=== PATIENT | female | born 1965 | race Caucasian/White ===

== ENCOUNTER 2023-04-28 18:55 | Emergency (ER) | payer BC ==
--- OUTSIDE RECORDS SUMMARY | 2023-04-28 19:02 | XMS REPORT | Continuity of Care Document ---
:[address] [facility] t Address [address] [place] [address] [place] [id number] Care Team Providers Name Role Phone Pcp, Patient Does Not Have A Primary Care Physician +1-000-0 00-0000 FOG_A_Provider Attending Clinician Unavailable Francisco Metz Attending Clinician Unavailable Silviano Justin Attending Clinician Unavailable Alejandra Quintana Attending Clinician Unknown, Attending Attending Clinician Unavailable ALEJANDRA MINER Attending Clinician Unavailable Kevin Butler Attending Clinician JIMBO MARTINEZ Attending Clinician Unavailable Therapy, [facility] Attending Clinician Unavailable Jimbo Martinez MD Attending Clinician Doctor Unassigned, [place] Attending Clinician Unavailable FOG_A_Provider Admitting Clinician Unavailable Silviano Justin Admitting Clinician Unavailable KNOW, DOES_NOT Admitting Clinician Unavailable Payers Payer Name Policy Type Policy Number Effective Date Expiration Date [place] [id number] 2021 (PPO) 00:00:00 [facility] [id number] 2020 [facility] 00:00:00 Problems Condition Condition Condition Status Onset Resolution Last Treating Co mments Source Name Details Category Date Date Treatment Clinician Date Myofascial Myofascial Problem Active A zalea pain Pain 5-08 Orthope 00:00: dic 00 Sports Medicin e Right side Right Side Problem Active A zalea sciatica Sciatica 4-24 Orthop e 00:00: dic 00 Sports Medicin e 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 00:00: di c t of right t of Right 00 Sp orts hip joint Hip Joint Medi isai e Hip pain Hip Pain Problem Active Azale a 4-19 Orthope 00:00: dic 00 Sports Medicin e Pain in Pain in Problem Active Annalisa right hip Right Hip 4-19 Orth ope joint Joint 00:00: dic 00 Sports Medicin e Hip pain Hip Pain Problem Active Azale a 2-17 Orthope 00:00: dic 00 Sports Medicin e Rupture of Rupture of Problem Active A zalea hip Hip 2-17 Orthope abductor Abductor 00:00: dic tendon Tendon 00 Sports Medicin e No known No known Disease Unive rs active active ity of problems problems [facility] Headache Headache Problem Active 2021-12-22 Memoria (finding) (finding) 22:30:49 l Active [place] Problem 12/22/2021 [facility] Hypothyroi Hypothyro Problem Active 2021-12-22 Memoria dism idism 22:30:49 l (disorder) (disorder) [place] Active Problem 12/22/2021 [facility] Visual Visual Problem Active 2021-12-22 Ruben luis disturbanc disturbanc 22:30:49 l e e [place] (disorder) (disorder) Active Problem 12/22/2021 [facility] Migraine Migraine Problem Active 2021-12-22 Memoria (disorder) (disorder) 22:30:49 l Active [place] Problem 12/22/2021 [facility] Chest pain Chest Problem Resolve 2021-12-22 Memoria (finding) pain d 22:30:49 l (finding) [place] Resolved Problem 12/22/2021 2016 [facility] Confusiona Confusion Problem Active 2021-12-22 Memoria l state al state 22:30:49 l (disorder) (disorder) [place] Active Problem 12/22/2021 [facility] Dizziness Dizziness Problem Active 2021-12-22 Memoria (finding) (finding) 22:30:49 l Active [place] Problem 12/22/2021 [facility] Allergies, Adverse Reactions, Alerts Allergy Allergy Status Severity Reaction(s) Onset Inactive Treating Comm ents Source Name Type Date Date Clinician No Known DA Active [facility] 03-12 [place] [facility] 00:[facility] 00 [facility] No Known DA Active [facility] Allergie 02-22 [place] 00:00: Rodrigez 00 [facility] No Known DA Active [facility] Allergie 02-21 [place] [facility] 00:[facility]: [facility] 00 dic Hospita l NO KNOWN Drug Active Univers ALLERGIE Class [facility] [place] Social History Social Habit Start Date Stop Date Quantity Comments Source Exposure to 2022-07-27 2022-08-06 Not sure [facility] SARS-CoV-2 (event) 00:00:00 12:58:00 [facility] Social History 2021-10-11 2021-10-11 [facility] 20:22:42 20:22:42 Sex [birth year] [facility] 00:00:00 00:00:00 Medical Branch Smoking Status Start Date Stop Date Source Tobacco smoking consumption [facility] Heavy Tobacco Smoker Annalisa Figueroa [facility] Medications Ordered Filled Start Stop Current Ordering Indication Dosage Frequency Signature Comments Components Source Medication Medication Date Date Medication? Clinician (SIG) Name Name Nebulizer 2021-09 Yes [id number] Use as Un gurvinder Accessories 1-14 directed ity of Kit 00:00: [place] 00 Medical Branch albuterol 2021-09 Yes [id number] 2.5mg Inhale 3 Univers 2.5 mg /3 1-14 mL every 4 ity of mL (0.083 00:00: (four) [place] %) 00 hours as Medical nebulizer needed for Bran ch solution Wheezing or Bronchospa sm. Nebulizer 2021-09 Yes [id number] Use as Un gurvinder Accessories 1-14 directed ity of (ADULT 00:00: [place] AEROSOL 00 Medical MASK) [facility] Branch methylPREDN 2021-09 Yes [id number] [facility] mouth ity of mg tablets 00:00: SEE-INSTRU [place] 00 CTIONS. Medical follow Branch package directions propranoloL 2021-09 Yes Univer s 60 mg 24 hr 0-31 ity of capsule 00:00: [place] [address] Medical Branch estradioL 2 2021-09 Yes Univer s mg tablet 0-30 ity of 00:00: [address] Branch eletriptan Yes 40 mg = 1 Me moria 40 MG Oral 2-15 tab, PO, l Tablet 21:18: Daily, PRN Paty nn [Relpax] 00 for migraine headache, may repeat dose once in 2 hours, X 30 day, # 6 tab, 1 Refill(s), Pharmacy: [facility] [id number], 154.94, cm, 11/07/21 14:52:00 [employer], Height, 65.511, kg, 11/07/21 14:52:00 [employer], Weight eletriptan Yes 40 mg = 1 Me moria 40 MG Oral 2-15 tab, PO, l Tablet 21:18: Daily, PRN Paty nn [Relpax] 00 for migraine headache, may repeat dose once in 2 hours, X 30 day, # 6 tab, 1 Refill(s), Pharmacy: [facility] [id number], 154.94, cm, 11/07/21 14:52:00 [employer], Height, 65.511, kg, 11/07/21 14:52:00 [employer], Weight eletriptan Yes 40 mg = 1 Me moria 40 MG Oral 2-15 tab, PO, l Tablet 21:18: Daily, PRN Paty nn [Relpax] 00 for migraine headache, may repeat dose once in 2 hours, X 30 day, # 6 tab, 1 Refill(s), Pharmacy: [facility] [id number], 154.94, cm, 11/07/21 14:52:00 [employer], Height, 65.511, kg, 11/07/21 14:52:00 [employer], Weight propranolol Yes 10 mg = 1 M emoria 10 mg oral 2-15 tab, PO, l tablet 21:16: BID, # 60 Kurtis n 00 tab, 3 Refill(s), Pharmacy: [facility] [id number], 154.94, cm, 11/07/21 14:52:00 [employer], Height, 65.511, kg, 11/07/21 14:52:00 [employer], Weight propranolol 2021-0 Yes 10 mg = 1 M emoria 10 mg oral 2-15 tab, PO, l tablet 21:16: BID, # 60 Kurtis n 00 tab, 3 Refill(s), Pharmacy: [facility] [id number], 154.94, cm, 11/07/21 14:52:00 [employer], Height, 65.511, kg, 11/07/21 14:52:00 [employer], Weight propranolol 2021-0 Yes 10 mg = 1 M emoria 10 mg oral 2-15 tab, PO, l tablet 21:16: BID, # 60 Kurtis n 00 tab, 3 Refill(s), Pharmacy: [facility] [id number], 154.94, cm, 11/07/21 14:52:00 [employer], Height, 65.511, kg, 11/07/21 14:52:00 [employer], Weight estradiol 2 2021-0 Yes 2 mg = 1 Me moria mg oral 1-19 tab, PO, l tablet 20:28: Daily, # [place] 00 30 tab, 0 Refill(s) pantoprazol 2021-0 Yes 40 mg = 1 M emoria e 40 MG 1-19 tab, PO, l Enteric 20:28: Daily, # Kurtis n Co[place] 00 30 tab, 0 Tablet Refill(s) [Protonix] estradiol 2 2021-0 Yes 2 mg = 1 Me moria mg oral 1-19 tab, PO, l tablet 20:28: Daily, # [place] 00 30 tab, 0 Refill(s) pantoprazol 2-0 Yes 40 mg = 1 M emoria e 40 MG 1-19 tab, PO, l Enteric 20:28: Daily, # Kurtis n Coated 00 30 tab, 0 Tablet Refill(s) [Protonix] estradiol 2 2021-0 Yes 2 mg = 1 Me moria mg oral 1-19 tab, PO, l tablet 20:28: Daily, # [place] 00 30 tab, 0 Refill(s) pantoprazol 2-0 Yes 40 mg = 1 M emoria e 40 MG 1-19 tab, PO, l Enteric 20:28: Daily, # Kurtis n Coated 00 30 tab, 0 Tablet Refill(s) [Protonix] Levothyroxi Yes 175 Memori a ne Sodium 1-19 microgram l 0.175 MG 20:27: = 1 cap, Paty nn Oral 00 PO, Daily, Capsule 0 Refill(s) Levothyroxi Yes 175 Memori a ne Sodium 1-19 microgram l 0.175 MG 20:27: = 1 cap, Paty nn Oral 00 PO, Daily, Capsule 0 Refill(s) Levothyroxi Yes 175 Memori a ne Sodium 1-19 microgram l 0.175 MG 20:27: = 1 cap, Paty nn Oral 00 PO, Daily, Capsule 0 Refill(s) casirivimab 2020- No [id number] 1200mg 1,200 mg, Univers -imdevimab 06-10 Subcutaneo it y of (REGEN-COV 16:45: 15:34 us, ONCE, [place] (EUA)) 00 :00 1 dose, On Medical injection Sat Branch 1,200 mg 06/10/21 at 1145, Routine casirivimab 2020- No [id number] 1200mg 1,200 mg, Univers -imdevimab 06-10 Subcutaneo it y of (REGEN-COV 16:45: 15:34 us, ONCE, [place] (EUA)) 00 :00 1 dose, On Medical injection Sat Branch 1,200 mg 06/10/21 at 1145, Routine levothyroxi 1990-09 Yes levothyrox Univers ne 125 mcg 1-14 ine 125 ity of tablet 00:00: mcg tablet [place] 00 Take 1 Medical tablet Branch every day by oral route for 30 days. albuterol albuterol No albuterol Annalisa sulfate 2.5 sulfate 2.5 sulfate Orthope mg/3 mL mg/3 mL 2.5 mg/3 dic (0.083 %) (0.083 %) mL (0.083 Sports solution solution %) Medicin for for solution e nebulizatio nebulizatio for n n nebulizati on albuterol albuterol No albuterol Annalisa sulfate 2.5 sulfate 2.5 sulfate Orthope mg/3 mL mg/3 mL 2.5 mg/3 dic (0.083 %) (0.083 %) mL (0.083 Sports solution solution %) Medicin for for solution e nebulizatio nebulizatio for n n nebulizati on azithromyci azithromyci No azithromyc Annalisa n 250 mg n 250 mg in 250 mg Or thope tablet tablet tablet dic Sports Medicin e ergocalcife ergocalcife No ergocalcif Annalisa rol rol willem Orthope (vitamin (vitamin (vitamin dic D2) 1,250 D2) 1,250 D2) 1,250 Sports mcg (50,000 mcg (50,000 mcg M edicin unit) unit) (50,000 e capsule capsule unit) capsule estradiol 2 estradiol 2 No estradiol Annalisa mg tablet mg tablet 2 mg Ortho pe tablet dic Sports Medicin e fluconazole fluconazole No fluconazol Annalisa 150 mg 150 mg e 150 mg Orthope tablet tablet tablet dic Sports Medicin e gabapentin gabapentin No gabapentin Annalisa 300 mg 300 mg 300 mg Orthope capsule capsule capsule dic Take 1 Take 1 Take 1 Sports tablet tablet tablet Medicin orally on orally on orally on e day 1 day 1 day 1 (night), 2 (night), 2 (night), 2 tablets tablets tablets (morning & (morning & (morning & night) on night) on night) on day 2, and day 2, and day 2, and 3 tablets 3 tablets 3 tablets (morning, (morning, (morning, afternoon, afternoon, afternoon, night) on night) on night) on day 3. day 3. day 3. Continue 3 Continue 3 Continue 3 times a day times a day times a thereafter thereafter day if no side if no side thereafter effects. effects. if no side effects. levofloxaci levofloxaci No levofloxac Annalisa n 750 mg n 750 mg in 750 mg Or thope tablet tablet tablet dic Sports Medicin e azithromyci azithromyci No azithromyc Annalisa n 250 mg n 250 mg in 250 mg Or thope tablet tablet tablet dic Sports Medicin e levothyroxi levothyroxi No levothyrox Annalisa ne 112 mcg ne 112 mcg ine 112 Orthope tablet tablet mcg tablet dic Sports Medicin e levothyroxi levothyroxi No levothyrox Annalisa ne 125 mcg ne 125 mcg ine 125 Orthope tablet tablet mcg tablet dic Sports Medicin e levothyroxi levothyroxi No levothyrox Annalisa ne 137 mcg ne 137 mcg ine 137 Orthope tablet tablet mcg tablet dic Sports Medicin e levothyroxi levothyroxi No levothyrox Annalisa ne 175 mcg ne 175 mcg ine 175 Orthope tablet tablet mcg tablet dic Sports Medicin e meloxicam meloxicam No meloxicam Annalisa 15 mg 15 mg 15 mg Orthope tablet Take tablet Take tablet dic 1 tablet 1 tablet Take 1 Sport s every day every day tablet Med icin by oral by oral every day e route. route. by oral route. methylpredn methylpredn No methylpred Annalisa isolone 4 isolone 4 nisolone 4 Orthope mg tablets mg tablets mg tablets dic in a dose in a dose in a dose Sports pack pack pack Medicin e pantoprazol pantoprazol No pantoprazo Annalisa e 40 mg e 40 mg le 40 mg Ortho pe tablet,nikki tablet,nikki tablet,del dic yed release yed release ayed S ports release Medicin e prednisolon prednisolon No prednisolo Annalisa e acetate 1 e acetate 1 ne acetate Orthope % eye % eye 1 % eye dic drops,suspe drops,suspe drops,susp Sports nsion nsion ension Medicin e propranolol propranolol No propranolo Annalisa ER 60 mg ER 60 mg l ER 60 mg O rthope capsule,24 capsule,24 capsule,24 dic hr,extended hr,extended hr,extende Sports release release d release Medi isai e ergocalcife ergocalcife No ergocalcif Annalisa rol rol willem Orthope (vitamin (vitamin (vitamin dic D2) 1,250 D2) 1,250 D2) 1,250 Sports mcg (50,000 mcg (50,000 mcg M edicin unit) unit) (50,000 e capsule capsule unit) capsule estradiol 2 estradiol 2 No estradiol Annalisa mg tablet mg tablet 2 mg Ortho pe tablet dic Sports Medicin e albuterol albuterol No albuterol Annalisa sulfate 2.5 sulfate 2.5 sulfate Orthope mg/3 mL mg/3 mL 2.5 mg/3 dic (0.083 %) (0.083 %) mL (0.083 Sports solution solution %) Medicin for for solution e nebulizatio nebulizatio for n n nebulizati on azithromyci azithromyci No azithromyc Annalisa n 250 mg n 250 mg in 250 mg Or thope tablet tablet tablet dic Sports Medicin e ergocalcife ergocalcife No ergocalcif Annalisa rol rol willem Orth[facility] (vitamin (vitamin (vitamin dic D2) 1,250 D2) 1,250 D2) 1,250 Sports mcg (50,000 mcg (50,000 mcg M edicin unit) unit) (50,000 e capsule capsule unit) capsule estradiol 2 estradiol 2 No estradiol Annalisa mg tablet mg tablet 2 mg Ortho pe tablet dic Sports Medicin e fluconazole fluconazole No fluconazol Annalisa 150 mg 150 mg e 150 mg Orthope tablet tablet tablet dic Sports Medicin e gabapentin gabapentin No gabapentin Annalisa 300 mg 300 mg 300 mg Orthope capsule capsule capsule dic Take 1 Take 1 Take 1 Sports tablet tablet tablet Medicin orally on orally on orally on e day 1 day 1 day 1 (night), 2 (night), 2 (night), 2 tablets tablets tablets (morning & (morning & (morning & night) on night) on night) on day 2, and day 2, and day 2, and 3 tablets 3 tablets 3 tablets (morning, (morning, (morning, afternoon, afternoon, afternoon, night) on night) on night) on day 3. day 3. day 3. Continue 3 Continue 3 Continue 3 times a day times a day times a thereafter thereafter day if no side if no side thereafter effects. effects. if no side effects. levofloxaci levofloxaci No levofloxac Annalisa n 750 mg n 750 mg in 750 mg Or thope tablet tablet tablet dic Sports Medicin e levothyroxi levothyroxi No levothyrox Annalisa ne 112 mcg ne 112 mcg ine 112 Orthope tablet tablet mcg tablet dic Sports Medicin e levothyroxi levothyroxi No levothyrox Annalisa ne 125 mcg ne 125 mcg ine 125 Orthope tablet tablet mcg tablet dic Sports Medicin e levothyroxi levothyroxi No levothyrox Annalisa ne 137 mcg ne 137 mcg ine 137 Orthope tablet tablet mcg tablet dic Sports Medicin e fluconazole fluconazole No fluconazol Annalisa 150 mg 150 mg e 150 mg Orthope tablet tablet tablet dic Sports Medicin e levothyroxi levothyroxi No levothyrox Annalisa ne 175 mcg ne 175 mcg ine 175 Orthope tablet tablet mcg tablet dic Sports Medicin e meloxicam meloxicam No meloxicam Annalisa 15 mg 15 mg 15 mg Orthope tablet Take tablet Take tablet dic 1 tablet 1 tablet Take 1 Sport s every day every day tablet Med icin by oral by oral every day e route. route. by oral route. methylpredn methylpredn No methylpred Annalisa isolone 4 isolone 4 nisolone 4 Orthope mg tablets mg tablets mg tablets dic in a dose in a dose in a dose Sports pack pack pack Medicin e pantoprazol pantoprazol No pantoprazo Annalisa e 40 mg e 40 mg le 40 mg Ortho pe tablet,nikki tablet,nikki tablet,del dic yed release yed release ayed S ports release Medicin e prednisolon prednisolon No prednisolo Annalisa e acetate 1 e acetate 1 ne acetate Orthope % eye % eye 1 % eye dic drops,suspe drops,suspe drops,susp Sports nsion nsion ension Medicin e propranolol propranolol No propranolo Annalisa ER 60 mg ER 60 mg l ER 60 mg O rthope capsule,24 capsule,24 capsule,24 dic hr,extended hr,extended hr,extende Sports release release d release Medi isai e levofloxaci levofloxaci No levofloxac Annalisa n 750 mg n 750 mg in 750 mg Or thope tablet tablet tablet dic Sports Medicin e levothyroxi levothyroxi No levothyrox Annalisa ne 112 mcg ne 112 mcg ine 112 Orthope tablet tablet mcg tablet dic Sports Medicin e levothyroxi levothyroxi No levothyrox Annalisa ne 125 mcg ne 125 mcg ine 125 Orthope tablet tablet mcg tablet dic Sports Medicin e levothyroxi levothyroxi No levothyrox Annalisa ne 137 mcg ne 137 mcg ine 137 Orthope tablet tablet mcg tablet dic Sports Medicin e levothyroxi levothyroxi No levothyrox Annalisa ne 175 mcg ne 175 mcg ine 175 Orthope tablet tablet mcg tablet dic Sports Medicin e methylpredn methylpredn No methylpred Annalisa isolone 4 isolone 4 nisolone 4 Orthope mg tablets mg tablets mg tablets dic in a dose in a dose in a dose Sports pack pack pack Medicin e pantoprazol pantoprazol No pantoprazo Annalisa e 40 mg e 40 mg le 40 mg Ortho pe tablet,nikki tablet,nikki tablet,del dic yed release yed release ayed S ports release Medicin e prednisolon prednisolon No prednisolo Annalisa e acetate 1 e acetate 1 ne acetate Orthope % eye % eye 1 % eye dic drops,suspe drops,suspe drops,susp Sports nsion nsion ension Medicin e propranolol propranolol No propranolo Annalisa ER 60 mg ER 60 mg l ER 60 mg O rthope capsule,24 capsule,24 capsule,24 dic hr,extended hr,extended hr,extende Sports release release d release Medi isai e albuterol albuterol No albuterol Annalisa sulfate 2.5 sulfate 2.5 sulfate Orthope mg/3 mL mg/3 mL 2.5 mg/3 dic (0.083 %) (0.083 %) mL (0.083 Sports solution solution %) Medicin for for solution e nebulizatio nebulizatio for n n nebulizati on azithromyci azithromyci No azithromyc Annalisa n 250 mg n 250 mg in 250 mg Or thope tablet tablet tablet dic Sports Medicin e ergocalcife ergocalcife No ergocalcif Annalisa rol rol willem Orthope (vitamin (vitamin (vitamin dic D2) 1,250 D2) 1,250 D2) 1,250 Sports mcg (50,000 mcg (50,000 mcg M edicin unit) unit) (50,000 e capsule capsule unit) capsule estradiol 2 estradiol 2 No estradiol Annalisa mg tablet mg tablet 2 mg Ortho pe tablet dic Sports Medicin e fluconazole fluconazole No fluconazol Annalisa 150 mg 150 mg e 150 mg Orthope tablet tablet tablet dic Sports Medicin e levofloxaci levofloxaci No levofloxac Annalisa n 750 mg n 750 mg in 750 mg Or thope tablet tablet tablet dic Sports Medicin e levothyroxi levothyroxi No levothyrox Annalisa ne 112 mcg ne 112 mcg ine 112 Orthope tablet tablet mcg tablet dic Sports Medicin e levothyroxi levothyroxi No levothyrox Annalisa ne 125 mcg ne 125 mcg ine 125 Orthope tablet tablet mcg tablet dic Sports Medicin e levothyroxi levothyroxi No levothyrox Annalisa ne 137 mcg ne 137 mcg ine 137 Orthope tablet tablet mcg tablet dic Sports Medicin e levothyroxi levothyroxi No levothyrox Annalisa ne 175 mcg ne 175 mcg ine 175 Orthope tablet tablet mcg tablet dic Sports Medicin e meloxicam meloxicam No 1 Q1D meloxicam Annalisa 15 mg 15 mg 15 mg Orthope tablet Take tablet Take tablet dic 1 tablet 1 tablet Take 1 Sport s every day every day tablet Med icin by oral by oral every day e route. route. by oral route. methylpredn methylpredn No methylpred Annalisa isolone 4 isolone 4 nisolone 4 Orthope mg tablets mg tablets mg tablets dic in a dose in a dose in a dose Sports pack pack pack Medicin e pantoprazol pantoprazol No pantoprazo Annalisa e 40 mg e 40 mg le 40 mg Ortho pe tablet,nikki tablet,nikki tablet,del dic yed release yed release ayed S ports release Medicin e prednisolon prednisolon No prednisolo Annalisa e acetate 1 e acetate 1 ne acetate Orthope % eye % eye 1 % eye dic drops,suspe drops,suspe drops,susp Sports nsion nsion ension Medicin e propranolol propranolol No propranolo Annalisa ER 60 mg ER 60 mg l ER 60 mg O rthope capsule,24 capsule,24 capsule,24 dic hr,extended hr,extended hr,extende Sports release release d release Medi isai e albuterol albuterol No albuterol Annalisa sulfate 2.5 sulfate 2.5 sulfate Orthope mg/3 mL mg/3 mL 2.5 mg/3 dic (0.083 %) (0.083 %) mL (0.083 Sports solution solution %) Medicin for for solution e nebulizatio nebulizatio for n n nebulizati on azithromyci azithromyci No azithromyc Annalisa n 250 mg n 250 mg in 250 mg Or thope tablet tablet tablet dic Sports Medicin e ergocalcife ergocalcife No ergocalcif Annalisa rol rol willem [facility] (vitamin (vitamin (vitamin dic D2) 1,250 D2) 1,250 D2) 1,250 Sports mcg (50,000 mcg (50,000 mcg M edicin unit) unit) (50,000 e capsule capsule unit) capsule estradiol 2 estradiol 2 No estradiol Annalisa mg tablet mg tablet 2 mg Ortho pe tablet dic Sports Medicin e fluconazole fluconazole No fluconazol Annalisa 150 mg 150 mg e 150 mg Orthope tablet tablet tablet dic Sports Medicin e levofloxaci levofloxaci No levofloxac Annalisa n 750 mg n 750 mg in 750 mg Or thope tablet tablet tablet dic Sports Medicin e levothyroxi levothyroxi No levothyrox Annalisa ne 112 mcg ne 112 mcg ine 112 Orthope tablet tablet mcg tablet dic Sports Medicin e levothyroxi levothyroxi No levothyrox Annalisa ne 125 mcg ne 125 mcg ine 125 Orthope tablet tablet mcg tablet dic Sports Medicin e levothyroxi levothyroxi No levothyrox Annalisa ne 137 mcg ne 137 mcg ine 137 Orthope tablet tablet mcg tablet dic Sports Medicin e levothyroxi levothyroxi No levothyrox Annalisa ne 175 mcg ne 175 mcg ine 175 Orthope tablet tablet mcg tablet dic Sports Medicin e meloxicam meloxicam No meloxicam Annalisa 15 mg 15 mg 15 mg Orthope tablet Take tablet Take tablet dic 1 tablet 1 tablet Take 1 Sport s every day every day tablet Med icin by oral by oral every day e route. route. by oral route. methylpredn methylpredn No methylpred Annalisa isolone 4 isolone 4 nisolone 4 Orthope mg tablets mg tablets mg tablets dic in a dose in a dose in a dose Sports pack pack pack Medicin e pantoprazol pantoprazol No pantoprazo Annalisa e 40 mg e 40 mg le 40 mg Ortho pe tablet,nikki tablet,nikki tablet,del dic yed release yed release ayed S ports release Medicin e prednisolon prednisolon No prednisolo Annalisa e acetate 1 e acetate 1 ne acetate Orthope % eye % eye 1 % eye dic drops,suspe drops,suspe drops,susp Sports nsion nsion ension Medicin e propranolol propranolol No propranolo Annalisa ER 60 mg ER 60 mg l ER 60 mg O rthope capsule,24 capsule,24 capsule,24 dic hr,extended hr,extended hr,extende Sports release release d release Medi isai e Vital Signs Vital Name Observation Time Observation Value Comments Source Height 2023-01-09 00:00:00 62 [in_i] [facility] BMI (Body Mass 2023-01-09 00:00:00 27.4 kg/m2 Annalisa [facility]) Sports Medicine Body Weight 2023-01-09 00:00:00 150 [lb_av] [facility] Height 2023-01-04 00:00:00 62 [in_i] [facility] BMI (Body Mass 2023-01-04 00:00:00 27.4 kg/m2 Annalisa [facility] Index) Sports Medicine Body Weight 2023-01-04 00:00:00 150 [lb_av] [facility] Height 2022-11-09 00:00:00 62 [in_i] [facility] BMI (Body Mass 2022-11-09 00:00:00 27.4 kg/m2 Annalisa [facility] Index) Sports Medicine Body Weight 2022-11-09 00:00:00 150 [lb_av] [facility] Systolic blood 2022-08-06 19:00:00 157 mm[Hg] Univer sity of pressure [facility] Diastolic blood 2022-08-06 19:00:00 95 mm[facility]Hg] [facility] Heart rate 2022-08-06 18:59:00 80 /min [facility] Body temperature 2022-08-06 18:59:00 36.72 [facility] 2022-08-06 18:59:00 18 /min [facility] Body weight 2022-08-06 18:59:00 67.767 kg [facility] BMI 2022-08-06 18:59:00 27.33 kg/m2 [facility] Oxygen saturation in 2022-08-06 18:59:00 98 /min [facility] blood by [facility] Pulse oximetry Branch Systolic blood 2021-06-10 16:14:00 128 mm[Hg] Univer sity of pressure [facility] Diastolic blood 2021-06-10 16:14:00 84 mm[Hg] Unive rsity of pressure [facility] Heart rate 2021-06-10 16:14:00 115 /min [facility] Body temperature 2021-06-10 16:14:00 36.56 [facility]ia [facility] Res[facility] rate 2021-06-10 16:14:00 22 /min [facility] Oxygen saturation in 2021-06-10 16:14:00 97 /min [facility] Arterial blood by [facility] Pulse oximetry Branch Body height 2021-06-10 15:32:00 157.5 cm [facility] Body weight 2021-06-10 15:32:00 60.782 kg [facility] BMI 2021-06-10 15:32:00 24.51 kg/m2 [facility] Systolic (mm Hg) 2021-11-07 20:31:00 Ruben rial [place] Diastolic (mm Hg) 2021-11-07 20:31:00 Mem orial [place] Heart Rate 2021-11-07 20:31:00 [facility] [place] Respitory Rate 2021-11-07 20:31:00 Memori al [place] Height 2021-11-07 20:31:00 154.94 cm [facility] [place] Weight 2021-11-07 20:31:00 [facility] [place] BMI Calculated 2021-11-07 20:31:00 Memori al [place] Systolic (mm Hg) 2021-10-11 20:08:00 Ruben rial [place] Diastolic (mm Hg) 2021-10-11 20:08:00 Mem orial [place] Heart Rate 2021-10-11 20:08:00 [facility] [place] Respitory Rate 2021-10-11 20:08:00 Memori al [place] Height 2021-10-11 20:08:00 157.48 cm [facility] [place] Weight 2021-10-11 20:08:00 [facility] [place] BMI Calculated 2021-10-11 20:08:00 Memori al [place] Procedures Procedure Date / Time Performing Clinician Source Performed MRI, lumbar spine, w/o 2023-01-28 00:00:00 Lluvia eng Orthopedic contrast Sports Medicine MRI, hip, w/o contrast 2023-01-04 00:00:00 Lluvia eng Orthopedic Sports Medicine [id number] CONSENT 2021-06-10 05:01:00 Doctor Unassigned, No Unive [facility] Hysterectomy<sup>2</sup [facility] > Cholecystectomy<sup>1</ [facility]> Eye Surgery Annalisa Orthopedi c Sports Medicine Gallbladder Surgery Annalisa Ortho pedic Sports Medicine Hysterectomy [facility] Knee Surgery [facility] Encounters Start End Encounter Admission Attending Care Care Encounter Source Date/Time Date/Time Type Type Clinicians Facility Department ID 2023-04-19 2023-04-19 Outpatient FOG_A_Provi AOSM AOSM [id number] Annalisa 00:00:00 00:00:00 titi [id number] Orthop e dic Sports Medicin e 2023-04-03 2023-04-03 [facility] [id number] [facility] 05:32:00 12:15:[address] [facility] 2023-04-02 2023-04-02 Outpatient FOG_A_Provi AOSM AOSM [id number] Annalisa 00:00:00 00:00:00 titi [id number] Orthop e dic Sports Medicin e 2023-04-02 2023-04-02 Outpatient FOG_A_Provi AOSM AOSM [id number] Annalisa 00:00:00 00:00:00 titi [id number] Orthop e dic Sports Medicin e 2023-03-23 2023-03-23 Outpatient FOG_A_Provi AOSM AOSM [id number] Annalisa 00:00:00 00:00:00 titi [id number] Orthop e dic Sports Medicin e 2023-03-23 2023-03-23 Outpatient FOG_A_Provi AOSM AOSM [id number] Annalisa 00:00:00 00:00:00 titi [id number] Orthop e dic Sports Medicin e 2023-03-23 2023-03-23 Outpatient FOG_A_Provi AOSM AOSM [id number] Annalisa 00:00:00 00:00:00 titi [id number] Orthop e dic Sports Medicin e 2023-03-07 2023-03-07 Outpatient MAGDALENO Metz LABO [id number] [facility] 18:50:00 18:50:00 Francisco 40 [facility] 2023-03-07 2023-03-07 Outpatient FOG_A_Provi AOSM AOSM [id number] Annalisa 00:00:00 00:00:00 titi [id number] Orthop e dic Sports Medicin e 2023-02-22 2023-02-22 Outpatient NEVILLE ChristianTO PAIN [id number] [facility] 08:00:00 08:00:00 [place] 80 [place] [facility] 2023-02-21 2023-02-21 Outpatient FOG_A_Provi AOSM AOSM [id number] Annalisa 00:00:00 00:00:00 titi [id number] Orthop e dic Sports Medicin e 2023-02-21 2023-02-21 Outpatient FOG_A_Provi AOSM AOSM [id number] Annalisa 00:00:00 00:00:00 titi [id number] Orthop e dic Sports Medicin e 2023-02-21 2023-02-21 Outpatient FOG_A_Provi AOSM AOSM [id number] Annalisa 00:00:00 00:00:00 titi [id number] Orthop e dic Sports Medicin e 2023-02-12 2023-02-12 Outpatient FOG_A_Provi AOSM AOSM [id number] Annalisa 00:00:00 00:00:00 titi [id number] Orthop e dic Sports Medicin e 2023-02-12 2023-02-12 Outpatient FOG_A_Provi AOSM AOSM [id number] Annalisa 00:00:00 00:00:00 titi [id number] Orthop e dic Sports Medicin e 2023-02-07 2023-02-07 Outpatient FOG_A_Provi AOSM AOSM [id number] Annalisa 00:00:00 00:00:00 titi [id number] Orthop e dic Sports Medicin e 2023-02-05 2023-02-05 Outpatient FOG_A_Provi AOSM AOSM [id number] Annalisa 00:00:00 00:00:00 titi [id number] Orthop e dic Sports Medicin e 2023-01-28 2023-01-28 Outpatient FOG_A_Provi AOSM AOSM [id number] Annalisa 00:00:00 00:00:00 titi [id number] Orthop e dic Sports Medicin e 2023-01-28 2023-01-28 Teto Arias AOSM [place] - Ortho [id number] Annalisa 00:00:00 00:00:00 MD Jing: Samanta Long rthope [address] FOG_Ofc dic [place] [address], [place] [address] , Ph. [phone] 2023-01-22 2023-01-22 Outpatient FOG_A_Provi AOSM AOSM [id number] Annalisa 00:00:00 00:00:00 titi [id number] Orthop e dic Sports Medicin e 2023-01-14 2023-01-14 Outpatient FOG_A_Provi AOSM AOSM [id number] Annalisa 00:00:00 00:00:00 titi [id number] Orthop e dic Sports Medicin e 2023-01-14 2023-01-14 Teto Arias AO [place] - Ortho [id number] Annalisa 00:00:00 00:00:00 MD Jing: Samanta Long rthope [address] FOG_Ofc dic [place] [address], [place] [address] , Ph. [phone] 2023-01-09 2023-01-09 Outpatient FOG_A_Provi AOSM AOSM [id number] Annalisa 00:00:00 00:00:00 titi [id number] Orthop e dic Sports Medicin e 2023-01-09 2023-01-09 Outpatient FOG_A_Provi AOSM AOSM [id number] Annalisa 00:00:00 00:00:00 titi [id number] Orthop e dic Sports Medicin e 2023-01-09 2023-01-09 Joon Maykel AOSM [place] - Orth[place] [id number] Annalisa 00:00:00 00:00:00 MD Nito: Samanta Rodriguez [address] [facility] Medicin [facility] [place] [address] , Ph. [phone] 2023-01-04 2023-01-04 Outpatient FOG_A_Provi AOSM AOSM [id number] Annalisa 00:00:00 00:00:00 titi [id number] Orthop e dic Sports Medicin e 2023-01-04 2023-01-04 Outpatient FOG_A_Provi AOSM AOSM [id number] Annalisa 00:00:00 00:00:00 titi [id number] Orthop e dic Sports Medicin e 2023-01-04 2023-01-04 Joon Brar AOSM [place] - Ortho [id number] Annalisa 00:00:00 00:00:00 MD Nito: Samanta Rodriguez [address] [place] FOG_Ofc dic [facility] [address] , Ph. [phone] 2023-01-01 2023-01-01 Outpatient FOG_A_Provi AOSM AOSM [id number] Annalisa 00:00:00 00:00:00 titi [id number] Orthop e dic Sports Medicin e 2023-01-01 2023-01-01 Outpatient FOG_A_Provi AOSM AOSM [id number] Annalisa 00:00:00 00:00:00 titi [id number] Orthop e dic Sports Medicin e 2022-11-29 2022-11-29 Outpatient FOG_A_Provi AOSM AOSM [id number] Annalisa 00:00:00 00:00:00 titi [id number] Orthop e dic Sports Medicin e 2022-11-09 2022-11-09 Outpatient FOG_A_Provi AOSM AOSM [id number] Annalisa 00:00:00 00:00:00 titi [id number] Orthop e dic Sports Medicin e 2022-11-09 2022-11-09 Outpatient FOG_A_Provi AOSM AOSM [id number] Annalsia 00:00:00 00:00:00 titi [id number] Orthop e dic Sports Medicin e 2022-11-09 2022-11-09 Joon Brar AOSM [place] - Ortho [id number] Annalisa 00:00:00 00:00:00 MD Nito: Samanta Mcgraw - Orthope [address] FOG_Ofc dic [facility] [employer] [facility] [address], [place] [address] , Ph. [phone] 2022-11-08 2022-11-08 Outpatient FOG_A_Provi AOSM AOSM [id number] Annalisa 00:00:00 00:00:00 titi [id number] Orthop e dic Sports Medicin e 2022-11-07 2022-11-07 Outpatient FOG_A_Provi AOSM AOSM [id number] Annalisa 00:00:00 00:00:00 titi [id number] Orthop e dic Sports Medicin e 2022-08-06 2022-08-06 Urgent Alejandra Miner [facility] 1.2.840. 114 [id number] Univers 12:40:00 13:00:00 Care Unknown, [id number] Johnny as MURRAY[phone] [facility] [address] [facility] OFFICE [facility] 2022-08-06 2022-08-06 [facility] [id number] Univers 12:40:00 12:40:00 ALEJANDRA snider [facility] 2021-12-20 2021-12-20 Ambulatory nullFlavo MNA [id number] Memoria 19:45:00 19:45:00 Pre-Reg r Neurology 03 l Farooq Briggs 2021-12-20 2021-12-20 Ambulatory nullFlavo MNA [id number] Memoria 19:45:00 19:45:00 Pre-Reg r Neurology 03 l Farooq Briggs 2021-12-20 2021-12-20 Outpatient MHIE IE [id number] Memoria 14:45:00 14:45:00 03 l [place] 2021-12-20 2021-12-20 [facility] [id number] 14:45:00 14:45:00 Kevin 03 Kirit 2021-11-07 2021-11-08 Outpatient nullFlavo MNA [id number] Memoria 20:15:00 05:59:59 r Neurology 01 ella Briggs 2021-11-07 2021-11-08 Outpatient nullFlavo MNA [id number] Memoria 20:15:00 05:59:59 r Neurology 01 Farooq Briggs 2021-11-07 2021-11-07 Outpatient Luke [facility] [id number] 14:15:00 23:59:59 Kevin Kirit 2021-11-07 2021-11-07 Outpatient MHIE MHIE [id number] Memoria 14:15:00 14:15:00 ella S[place] 2021-10-25 2021-10-26 Outpatient nullFlavo MNA [id number] Memoria 21:30:00 05:59:59 r Neurology 02 ella Siddiquiann 2021-10-25 2021-10-26 Outpatient nullFlavo MNA [id number] Memoria 21:30:00 05:59:59 r Neurology 02 ella Siddiquiann 2021-10-25 2021-10-25 Outpatient [facility] [id number] 15:30:00 23:59:59 Kevin 02 Kirit 2021-10-25 2021-10-25 Outpatient MHIE MHIE [id number] Memoria 15:30:00 15:30:00 02 ella SiddiquiChester 2021-10-11 2021-10-12 Outpatient nullFlavo MNA [id number] Memoria 20:15:00 05:59:59 r Neurology 00 ella Siddiquiann 2021-10-11 2021-10-12 Outpatient nullFlavo MNA [id number] Memoria 20:15:00 05:59:59 r Neurology 00 ella Siddiquiann 2021-10-11 2021-10-11 Outpatient [facility] [id number] 14:15:00 23:59:59 Kevin 00 Kirit 2021-10-112021-10-11 Outpatient IE IE [id number] Memoria 14:15:00 14:15:00 00 l [place] 2021-06-10 2021-06-10 Outpatient R NITO [facility] [id number] Univers 11:00:00 11:00:00 JIMBO ity of [facility] 2021-06-10 2021-06-10 Nurse Therapy, Adc Covid Infusion [facility] 1.2.840.114 [id number] Univers 08:03:45 09:03:45 Visit Jimbo Martinez [id number] ity [facility] [place]2.7.2.686 [place] [phone] [place] [id number] Branch 2021-06-10 2021-06-10 Orders Doctor RIO 1.2.840.114 [id number] Univers 00:00:00 00:00:00 Only Unassigned, KATHARINE [id number] ity of [facility] 4.2.7.2.686 Johnny as [phone] [place] [address] Branch Results Test Description Test Time Test Comments Results Result [facility] e Comments - XR SPINE 1 V 2023-04-04 SPEC LEVEL 09:13:00 [facility] : 1965 Sex: F Patient Name: IRAIS ROSADO Unit No: [id number] EXAMS: CPT CODE: [id number] XR SPINE 1 V SPEC LEVEL 04738 2 LATERAL INTRAOPERATIVE VIEWS OF THE LUMBAR SPINE Image 1: Surgical marker is at L5 Image 2: Surgical instrumentation is at L4-L5 at 0913 Reported and signed by: Joo Gao M.D. CC: Technologist: Mychal Patel(R) Transcribed D/ (912) KellySLJ [facility] NAME: IRAIS ROSADO [address] [facility] PHYS: WIMDA.Vincent - Francisco Metz : 1965 AGE: 57 SEX: F [place] [address] LOC: Y.4SUR PHONE #: [phone] EXAM DATE: 04/03/2023 STATUS: [facility] FAX #: [phone] RAD #: D/C DT PAGE 1 Signed Report Patient Name: IRAIS ROSADO Unit No: [id number] EXAMS: CPT CODE: [id number] XR SPINE 1 V SPEC LEVEL 03876 (Continued) Orig Print D/T: S: 04/04/2023 (915) [facility] NAME: IRAIS ROSADO [address] [facility] PHYS: WIMDA.Vincent - Francisco Metz : 1965 AGE: 57 SEX: F [place] [address] LOC: YBraulio4SUR PHONE #: [phone] EXAM DATE: 04/03/2023 STATUS: [facility] FAX #: [phone] RAD #: D/C DT PAGE 2 Signed Report - XR SPINE 1 V 2023-04-04 SPEC LEVEL 09:13:00 [facility] 1965 Sex: F Patient Name: IRAIS ROSADO Unit No: [id number] EXAMS: CPT CODE: [id number] XR SPINE 1 V SPEC LEVEL 32472 2 LATERAL INTRAOPERATIVE VIEWS OF THE LUMBAR SPINE Image 1: Surgical marker is at L5 Image 2: Surgical instrumentation is at L4-L5 at 0913 Reported and signed by: Joo Gao M.D. CC: Technologist: Mychal Patel(R) Transcribed D/ (912) Tae [facility] NAME: IRAIS ROSADO [address] [facility] PHYS: Francisco Maynard : 1965 AGE: 57 SEX: F [place] [address] LOC: Latha4SMITESH PHONE #: [phone] EXAM DATE: 04/03/2023 STATUS: [facility] FAX #: [phone] RAD #: D/C DT PAGE 1 Signed Report Patient Name: IRAIS ROSADO Unit No: [id number] EXAMS: CPT CODE: [id number] XR SPINE 1 V SPEC LEVEL 33557 (Continued) Orig Print D/T: S: 04/04/2023 (0916) [facility] NAME: IRAIS ROSADO [address] [facility] PHYS: KIKA - Francisco Metz : 1965 AGE: 57 SEX: F [place] [address] LOC: Y.4SUR PHONE #: [phone] EXAM DATE: 04/03/2023 STATUS: [facility] FAX #: [phone] RAD #: D/C DT PAGE 2 Signed Report VITAMIN D 25-HYDROXY (TOTAL) 2023-03-08 07:47:00 Test Item Value Reference Range Interpretation Comme nts VITAMIN D 25-HYDROXY (TOTAL) 19.6 ng/mL 30.0-100.0 L Vitamin D deficiency has been (test code = VITD25) defined by the [place] ofMedicine and an Endocrine Society practic e guideline as alevel of serum 25-OH vitamin D less than 20 ng /mL (1,2).The Endocrine Socie ty went on to further define vitamin Dinsufficiency as a level between 21 and 29 ng/mL (2).1. IOM ([place] of M edicine). 2010. Dietary referen ce intakes for calcium and D. [place]: The National [employer] Press.2. [place]ienna MF, Curtis JAVED, Hnasa MONTANO, et al. Evaluation, lashawn atment, and prevention of v itamin D deficiency: an Endocrine Society clinical practi ce guideline. JCEM. 2010; 96(7):1911-30.P erformed At: [facility] [address] 770 [id number] David Pérez MD Ph:[phone] COMPREHENSIVE METABOLIC [id number] 18:58:00 Test Item Value Reference Range Interpretation Comments SODIUM (test code = 139 mmol/L 136-145 N NA) POTASSIUM (test 4.4 mmol/L 3.5-5.1 N code = K) CHLORIDE (test code 103.0 mmol/L 98-107 N = CL) CARBON DIOXIDE 26.9 mmol/L 21-32 N (test code = CO2) GLUCOSE (test code 117 mg/dL 70-110 H = GLU) BLOOD UREA NITROGEN 17 mg/dL 7-18 N (test code = BUN) GLOMERULAR 73.6 >60 The Glomerular FILTRATION RATE Filtration R ate is a (test code = GFR) calculated parameterbased on serum Creatinin e, patient age and sex. GFR valuesless than 60 mL/min/1.73 squ are meters are aubrey cative ofChronic Kidne y Disease. Values less than 15 mL/min/1.73squa re meters indicate Kidney failure. The calculation for GFR is based on the CK D-EPI (2020) calculat ion. This formulais race indifferent and is the recommended for lynsey for GFRby the N ational Kidney Foundati on for Adults.The GFR will not calculate i f the sex is unknown or if thepatient's ag e is <18 years. CREATININE (test 0.91 mg/dL 0.55-1.30 N code = CREAT) TOTAL PROTEIN (test 7.8 g/dL 6.4-8.2 N code = PROT) ALBUMIN (test code 3.8 g/dL 3.4-5.0 N = ALB) GLOBULIN (test code 4.0 g/dL 2.2-4.2 N = GLOB) ALBUMIN/GLOBULIN 1.0 0.7-2.0 N RATIO (test code = A/G) CALCIUM (test code 9.6 mg/dL 8.2-10.1 N = CA) BILIRUBIN TOTAL 0.40 mg/dL 0.2-1.00 N (test code = BILT) SGOT/AST (test code 13.0 U/L 15-37 L = AST) SGPT/ALT (test code 17.0 U/L 12-78 N = ALT) ALKALINE 83 U/L 46-116 N PHOSPHATASE TOTAL (test code = ALKP) PROTHROMBIN [id number] 18:41:00 Test Item Value Reference Range Interpretation Comments PROTHROMBIN TIME 10.7 secs 9.4-12.5 N Please note new normal PATIENT (test code = range. PTP) INTERNATIONAL NORMAL 0.96 <2.0 RECOMME NDED THERAPEUTIC RATIO (test code = RANGE FOR ORAL INR) ANTICOAGULANTTR EATMENT: CONDITION INRPr ophylaxis of venous throm bosis in 2.0 - 3.0 high- risk medical or surg ical patientsTreatme nt of venous thrombos is 2.0 - 3.0Prevention o f embolism 2.0 - 3.0Prevention o f recurrent embol ism, or 3.0 - 4.5 patie nts with mechanical pros thetic intravascular v goodwin IS PATIENT ON ANTICOAGULANTS ? NHas Lab been notified if Patient is on Heparin Drip? NOTHROMBOPLASTIN TIME [id number] 18:41:00 Test Item Value Reference Range Interpretation Comments PTT ACTIVATED (test 32.8 secs 25.1-36.5 N Please n ote new code = APTT) normal range. IS PATIENT ON ANTICOAGULANTS ? NHas Lab been notified if Patient is on Heparin Drip? NOCBC W/AUTO [id number] 18:34:00 Test Item Value Reference Range Interpretation Comments WHITE BLOOD CELL (test code = 15.6 K/mm3 5.8-11.0 H WBC) RED BLOOD CELL (test code = RBC) 4.68 M/mm3 4.2-5.4 N HEMOGLOBIN (test code = HGB) 14.8 g/dL 12-16 N HEMATOCRIT (test code = HCT) 43.2 % 37-47 N MEAN CELL VOLUME (test code = 92 fL 80-98 N MCV) MEAN CELL HGB (test code = MCH) 31.6 pg 27-34 N MEAN CELL HGB CONCENTRATION (test 34.3 g/dL 30.8-34.1 H code = MCHC) RED CELL DISTRIBUTION WIDTH (test 12.5 % 11-16 N code = RDW) PLT (test code = PLT) 370 K/mm3 130-400 N MEAN PLATELET VOLUME (test code = 9.8 fL 8.9-12.1 N MPV) NEUTROPHIL % (test code = NT%) 73.2 % 45-70 H LYMPHOCYTE % (test code = LY%) 20.7 % 20-40 N MONOCYTE % (test code = MO%) 4.9 % 3-10 N EOSINOPHIL % (test code = EO%) 0.4 % 1-5 L BASOPHIL % (test code = BA%) 0.4 % 0.0-1.1 N NEUTROPHIL # (test code = NT#) 11.40 K/mm3 2.00-7.50 H LYMPHOCYTE # (test code = LY#) 3.23 K/mm3 1.50-4.00 N MONOCYTE # (test code = MO#) 0.77 K/mm3 0.2-0.8 N EOSINOPHIL # (test code = EO#) 0.07 K/mm3 0.04-0.4 N BASOPHIL # (test code = BA#) 0.07 K/mm3 0.02-0.10 N MANUAL DIFF REQUIRED (test code = NO MANUAL DIFF MDIFF) NUCLEATED RED BLOOD CELL (test 0 % 0-0 N code = NRBC) - XR FLUORO FOR SPINE [id number] 07:22:00 [facility] [place] [facility] 1965 Sex: F Patient Name: IRAIS ROSADO Unit No: [id number] EXAMS: CPT CODE: [id number] XR FLUORO FOR SPINE INJ 99681 LUMBAR EPIRADICULAR INJECTION REFERRAL PHYSICIAN: Dr. Teto Ch PREOPERATIVE DIAGNOSIS: LumbarRadiculitis POSTOPERATIVE DIAGNOSIS: Same as above PROCEDURES PERFORMED: Fluoroscopically guided needle localization of the right L4, L5, S1 spinal nerves with transforaminal epidurograms and epidural i njection of local anesthetic and steroid. FINDINGS: Preinjection VAS 7/10. Postinjection VAS 0/10. Steroid response pending follow-up. ESTIMATED BLOOD LOSS: Minimal ANESTHESIA: TIVA COMPLICATIONS: None DETAILS OF PROCEDURE: After obtaining stable vital signs, informed consent and IV access, with no co ntraindications, the patient was taken to the operating room and placed in a prone position with allextremities padded and appropriate monitors placed. The patient was sterilely prepped and draped over the lumbosacral spine. Using fluoroscopic visualization the insertion sites were marked for paravertebral approaches and using standard technique, a 25 gauge needle was advanced to the base of each pedicle without paresthesias. Isovue-300 contrast 0.2 mL of was injected at each level incrementally with frequent negative aspirations to produce each epidurogram. There were no signs of intravascular orintrathecal uptake. Bupivicaine 0.75% 0.25 mL with lidocaine 4% 0.5 mL and Decadron 5 mg was then incrementally injected with frequent negative aspirations at each level and again there were no signs of intravascular or intrathecal uptake. The needles were removed and the patient was taken to the PACU in good condition. Image: Image 1 at 0722 Reported and signed by: RADHA LANDEROS MD CC: Silviano Justin MD Technologist: Kameron A.Kottor, R.T.(R) Transcribed D/ (0722) [facility] NAME: IRAIS ROSADO [address] [facility] PHYS: Silviano Miller MD [place], [place] [address] : 1965 AGE: 57 SEX: F LOC: BRE PHONE #: [phone] EXAM DATE: 02/22/2023 STATUS: [facility] FAX #:[phone] RAD #: D/C DT PAGE 1 Signed Report Patient Name: IRAIS ROSADO Unit No: [id number]: CPT CODE: [id number] XR FLUORO FOR SPINE INJ 31040 (Continued) Orig Print D/T: S: 02/24/2023 (0725) [facility] NAME: IRAIS ROSADO [address] [facility] PHYS: Silviano Miller MD [place], [place] [address] : 1965 AGE: 57 SEX: F LOC: BRE PHONE #: [phone] EXAM DATE: 02/22/2023 STATUS: [facility] FAX #: [phone] RAD #: D/C DT PAGE 2 Signed [id number] 15:22:00 Test Item Value Reference Range Interpretation Comments Hgb (test code = Hgb) 14.4 11.7-15.5 [facility] [id number] 15:22:00 Test Item Value Reference Range Interpretation Comments ASPARTATE TRANSAMINASE (test code = 15 10-35 ASPARTATE TRANSAMINASE) [facility] [id number] 15:22:00 Test Item Value Reference Range Interpretation Comments ALANINE AMINOTRANSFERASE (test code = 13 6-29 ALANINE AMINOTRANSFERASE) [id number] 15:22:00 Test Item Value Reference Range Interpretation Comments WBC X 10x3 (test code = WBC X 10x3) 9.2 3.8-10.8 [id number] 15:22:00 Test Item Value Reference Range Interpretation Comments RBC X 10x6 (test code = RBC X 10x6) 4.69 3.80-5.10 [place] [id number] 15:22:00 Test Item Value Reference Range Interpretation Comments Hgb (test code = Hgb) 14.4 11.7-15.5 [place] 080002-01-20 15:22:00 Test Item Value Reference Range Interpretation Comments Hct (test code = Hct) 41.7 35.0-45.0 [place] 080002-01-20 15:22:00 Test Item Value Reference Range Interpretation Comments MCV (test code = MCV) 88.9 80.0-100.0 [place] 080002-01-20 15:22:00 Test Item Value Reference Range Interpretation Comments MCH (test code = MCH) 30.7 pg 27.0-33.0 [place] 080002-01-20 15:22:00 Test Item Value Reference Range Interpretation Comments MCHC (test code = MCHC) 34.5 32.0-36.0 [place] 080002-01-20 15:22:00 Test Item Value Reference Range Interpretation Comments RDW (test code = RDW) 11.8 11.0-15.0 [place] 080002-01-20 15:22:00 Test Item Value Reference Range Interpretation Comments Hct (test code = Hct) 41.7 35.0-45.0 [place] 080002-01-20 15:22:00 Test Item Value Reference Range Interpretation Comments Platelet (test code = Platelet) 310 140-400 [facility]Gpp[facility]STMMGMCRHI0948-13-99 15:22:00 Test Item Value Reference Range Interpretation Comments MPV (test code = MPV) 10.6 7.5-12.5 [facility] CampusYaocewzMSOZIVWCUA5159-90-96 15:22:00 Test Item Value Reference Range Interpretation Comments Neutrophils # (test code = Neutrophils 6247 1757-1786 #) [facility] CampusVmbqignYSDYWELJUY4193-01-35 15:22:00 Test Item Value Reference Range Interpretation Comments Lymphocytes # (test code = Lymphocytes 2226 850-3900 #) [facility] CampusZoakpkbBRYQRCIZPH3383-29-33 15:22:00 Test Item Value Reference Range Interpretation Comments Monocytes # (test code = Monocytes #) 598 200-950 [place] 080002-01-20 15:22:00 Test Item Value Reference Range Interpretation Comments MCV (test code = MCV) 88.9 80.0-100.0 [facility]DWH0503-52-21 15:22:00 Test Item Value Reference Range Interpretation Comments Eosinophils # (test code = Eosinophils 64 15-500 #) [facility] CampusYresagsGKYTUJYXYA8389-85-13 15:22:00 Test Item Value Reference Range Interpretation Comments Basophils # (test code 64 See_Comment [Aut omated message] The = Basophils #) system which generated this result tra nsmitted reference range : <=200. The reference r julia was not used to int erpret this result as normal/abnormal . [facility]JtqagasEVCIATXMJA8524-50-13 15:22:00 Test Item Value Reference Range Interpretation Comments Segs (test code = Segs) 67.9 [place] 080002-01-20 15:22:00 Test Item Value Reference Range Interpretation Comments Lymphocytes (test code = Lymphocytes) 24.2 [place] 080002-01-20 15:22:00 Test Item Value Reference Range Interpretation Comments Monocytes (test code = Monocytes) 6.5 [facility] CampusNzhbxomWXYKNLURTP0000-82-39 15:22:00 Test Item Value Reference Range Interpretation Comments Eosinophils (test code = Eosinophils) 0.7 [facility] CampusPlwabdjRKPGVBORXY1069-85-75 15:22:00 Test Item Value Reference Range Interpretation Comments Basophils (test code = Basophils) 0.7 [facility] CampusWidgggbNUGXWFSKTE2965-48-53 15:22:00 Test Item Value Reference Range Interpretation Comments Sed Rate (test code = Sed Rate) 6 [facility]villeSnpvhaeGIEUYGZISK4189-01-92 15:22:00 Test Item Value Reference Range Interpretation Comments C-REACTIVE PROTEIN (test code = 2.2 C-REACTIVE PROTEIN) [place] 080002-01-20 15:22:00 Test Item Value Reference Range Interpretation Comments MCH (test code = MCH) 30.7 pg 27.0-33.0 [facility]2022-01-20 15:22:00 Test Item Value Reference Range Interpretation Comments Glucose Lvl (test code = Glucose Lvl) 108 65-99 [place] 517342-01-20 15:22:00 Test Item Value Reference Range Interpretation Comments BUN (test code = BUN) 13 7-25 [place] 517342-01-20 15:22:00 Test Item Value Reference Range Interpretation Comments Creatinine Lvl (test code = Creatinine 0.87 0.50-1.05 Lvl) [place] 517342-01-20 15:22:00 Test Item Value Reference Range Interpretation Comments eGFR NON-AFR. PERUVIAN (test code = 74 eGFR NON-AFR. PERUVIAN) [place] 517342-01-20 15:22:00 Test Item Value Reference Range Interpretation Comments eGFR (test code = eGFR 86 ) [place] 517342-01-20 15:22:00 Test Item Value Reference Range Interpretation Comments B/C Ratio (test code = B/C NOT APPLICABLE 03-14 Ratio) [place] 517342-01-20 15:22:00 Test Item Value Reference Range Interpretation Comments Sodium Lvl (test code = Sodium Lvl) 140 135-146 [place] 517342-01-20 15:22:00 Test Item Value Reference Range Interpretation Comments Potassium Lvl (test code = Potassium 4.5 3.5-5.3 Lvl) [place] 517342-01-20 15:22:00 Test Item Value Reference Range Interpretation Comments Chloride Lvl (test code = Chloride Lvl) 107 98-110 [place] 517342-01-20 15:22:00 Test Item Value Reference Range Interpretation Comments CO2 (test code = CO2) 28 20-32 [place] 517342-01-20 15:22:00 Test Item Value Reference Range Interpretation Comments Calcium Lvl (test code = Calcium Lvl) 9.8 8.6-10.4 [facility]LP1590[facility]61-86 15:22:00 Test Item Value Reference Range Interpretation Comments MCHC (test code = MCHC) 34.5 32.0-36.0 [place] 517342-01-20 15:22:00 Test Item Value Reference Range Interpretation Comments Total Protein (test code = Total 7.0 6.1-8.1 Protein) [place] 517342-01-20 15:22:00 Test Item Value Reference Range Interpretation Comments Albumin Lvl (test code = Albumin Lvl) 4.2 3.6-5.1 [place] 517342-01-20 15:22:00 Test Item Value Reference Range Interpretation Comments Globulin (test code = Globulin) 2.8 1.9-3.7 [place] 517342-01-20 15:22:00 Test Item Value Reference Range Interpretation Comments A/G Ratio (test code = A/G Ratio) 1.5 1.0-2.5 [place] 517342-01-20 15:22:00 Test Item Value Reference Range Interpretation Comments Bili Total (test code = Bili Total) 0.9 0.2-1.2 [place] 517342-01-20 15:22:00 Test Item Value Reference Range Interpretation Comments Alk Phos (test code = Alk Phos) 70 37-153 [place] 517342-01-20 15:22:00 Test Item Value Reference Range Interpretation Comments ASPARTATE TRANSAMINASE (test code = 15 10-35 ASPARTATE TRANSAMINASE) [place] 517342-01-20 15:22:00 Test Item Value Reference Range Interpretation Comments ALANINE AMINOTRANSFERASE (test code = 13 6-29 ALANINE AMINOTRANSFERASE) [place] 080002-01-20 15:22:00 Test Item Value Reference Range Interpretation Comments RDW (test code = RDW) 11.8 11.0-15.0 [place] 080002-01-20 15:22:00 Test Item Value Reference Range Interpretation Comments Platelet (test code = Platelet) 310 140-400 [place] 080002-01-20 15:22:00 Test Item Value Reference Range Interpretation Comments MPV (test code = MPV) 10.6 7.5-12.5 [place] 080002-01-20 15:22:00 Test Item Value Reference Range Interpretation Comments Neutrophils # (test code = Neutrophils 6247 5165-8328 #) [place] 080002-01-20 15:22:00 Test Item Value Reference Range Interpretation Comments Lymphocytes # (test code = Lymphocytes 2226 850-3900 #) [place] 080002-01-20 15:22:00 Test Item Value Reference Range Interpretation Comments Monocytes # (test code = Monocytes #) 598 200-950 [place] [address]-01-20 15:22:00 Test Item Value Reference Range Interpretation Comments Eosinophils # (test code = Eosinophils 64 15-500 #) [place] 517342-01-20 15:22:00 Test Item Value Reference Range Interpretation Comments Glucose Lvl (test code = Glucose Lvl) 108 65-99 [facility]NwncrbyYFXJRQFSDO5625-47-66 15:22:00 Test Item Value Reference Range Interpretation Comments Basophils # (test code 64 See_Comment [Aut omated message] The = Basophils #) system which generated this result tra nsmitted reference range : <=200. The reference r julia was not used to int erpret this result as normal/abnormal . [facility]2022-01-20 15:22:00 Test Item Value Reference Range Interpretation Comments BUN (test code = BUN) 13 7- [place] 517342-01-20 15:22:00 Test Item Value Reference Range Interpretation Comments Creatinine Lvl (test code = Creatinine 0.87 0.50-1.05 Lvl) [place] 517342-01-20 15:22:00 Test Item Value Reference Range Interpretation Comments eGFR NON-AFR. PERUVIAN (test code = 74 eGFR NON-AFR. PERUVIAN) [facility]2022-01-20 15:22:00 Test Item Value Reference Range Interpretation Comments eGFR (test code = eGFR 86 ) [place] 517342-01-20 15:22:00 Test Item Value Reference Range Interpretation Comments B/C Ratio (test code = B/C NOT APPLICABLE 03-14 Ratio) [place] 517342-01-20 15:22:00 Test Item Value Reference Range Interpretation Comments Sodium Lvl (test code = Sodium Lvl) 140 135-146 [place] 517342-01-20 15:22:00 Test Item Value Reference Range Interpretation Comments Potassium Lvl (test code = Potassium 4.5 3.5-5.3 Lvl) [place] 517342-01-20 15:22:00 Test Item Value Reference Range Interpretation Comments Chloride Lvl (test code = Chloride Lvl) 107 98-110 [place] 517342-01-20 15:22:00 Test Item Value Reference Range Interpretation Comments CO2 (test code = CO2) 28 - [place] 517342-01-20 15:22:00 Test Item Value Reference Range Interpretation Comments Calcium Lvl (test code = Calcium Lvl) 9.8 8.6-10.4 [place] 517342-01-20 15:22:00 Test Item Value Reference Range Interpretation Comments Total Protein (test code = Total 7.0 6.1-8.1 Protein) [place] 517342-01-20 15:22:00 Test Item Value Reference Range Interpretation Comments Albumin Lvl (test code = Albumin Lvl) 4.2 3.6-5.1 [place] 517342-01-20 15:22:00 Test Item Value Reference Range Interpretation Comments Globulin (test code = Globulin) 2.8 1.9-3.7 [place] 517342-01-20 15:22:00 Test Item Value Reference Range Interpretation Comments A/G Ratio (test code = A/G Ratio) 1.5 1.0-2.5 [place] 517342-01-20 15:22:00 Test Item Value Reference Range Interpretation Comments Bili Total (test code = Bili Total) 0.9 0.2-1.2 [place] 517342-01-20 15:22:00 Test Item Value Reference Range Interpretation Comments Alk Phos (test code = Alk Phos) 70 37-153 [place] 517342-01-20 15:22:00 Test Item Value Reference Range Interpretation Comments ASPARTATE TRANSAMINASE (test code = 15 10-35 ASPARTATE TRANSAMINASE) [place] 517342-01-20 15:22:00 Test Item Value Reference Range Interpretation Comments ALANINE AMINOTRANSFERASE (test code = 13 6-29 ALANINE AMINOTRANSFERASE) [place] [address]-01-20 15:22:00 Test Item Value Reference Range Interpretation Comments WBC X 10x3 (test code = WBC X 10x3) 9.2 3.8-10.8 [place] 080002-01-20 15:22:00 Test Item Value Reference Range Interpretation Comments RBC X 10x6 (test code = RBC X 10x6) 4.69 3.80-5.10 [place] [address]-01-20 15:22:00 Test Item Value Reference Range Interpretation Comments Hgb (test code = Hgb) 14.4 11.7-15.5 [place] [address]-01-20 15:22:00 Test Item Value Reference Range Interpretation Comments Hct (test code = Hct) 41.7 35.0-45.0 [place] 080002-01-20 15:22:00 Test Item Value Reference Range Interpretation Comments MCV (test code = MCV) 88.9 80.0-100.0 [place] 080002-01-20 15:22:00 Test Item Value Reference Range Interpretation Comments MCH (test code = MCH) 30.7 pg 27.0-33.0 [place] 080002-01-20 15:22:00 Test Item Value Reference Range Interpretation Comments MCHC (test code = MCHC) 34.5 32.0-36.0 [place] 080002-01-20 15:22:00 Test Item Value Reference Range Interpretation Comments RDW (test code = RDW) 11.8 11.0-15.0 [place] 080002-01-20 15:22:00 Test Item Value Reference Range Interpretation Comments Platelet (test code = Platelet) 310 140-400 [place] 080002-01-20 15:22:00 Test Item Value Reference Range Interpretation Comments MPV (test code = MPV) 10.6 7.5-12.5 [place] 080002-01-20 15:22:00 Test Item Value Reference Range Interpretation Comments Neutrophils # (test code = Neutrophils 6247 4107-2759 #) [facility] CampusOvcndvqDHKUOTOJVT4194-41-15 15:22:00 Test Item Value Reference Range Interpretation Comments Lymphocytes # (test code = Lymphocytes 2226 850-3900 #) [facility] CampusHjrxgdqCZHGOADXVP8615-19-99 15:22:00 Test Item Value Reference Range Interpretation Comments Segs (test code = Segs) 67.9 [place] 080002-01-20 15:22:00 Test Item Value Reference Range Interpretation Comments Monocytes # (test code = Monocytes #) 598 200-950 [place] 080002-01-20 15:22:00 Test Item Value Reference Range Interpretation Comments Eosinophils # (test code = Eosinophils 64 15-500 #) [place] 080002-01-20 15:22:00 Test Item Value Reference Range Interpretation Comments Basophils # (test code 64 See_Comment [Aut omated message] The = Basophils #) system which generated this result tra nsmitted reference range : <=200. The reference r julia was not used to int erpret this result as normal/abnormal . [facility] CampusPwftyktPMCYYLEZUW9814-89-43 15:22:00 Test Item Value Reference Range Interpretation Comments Segs (test code = Segs) 67.9 [place] 080002-01-20 15:22:00 Test Item Value Reference Range Interpretation Comments Lymphocytes (test code = Lymphocytes) 24.2 [place] 080002-01-20 15:22:00 Test Item Value Reference Range Interpretation Comments Monocytes (test code = Monocytes) 6.5 [place] 080002-01-20 15:22:00 Test Item Value Reference Range Interpretation Comments Eosinophils (test code = Eosinophils) 0.7 [place] 080002-01-20 15:22:00 Test Item Value Reference Range Interpretation Comments Basophils (test code = Basophils) 0.7 [place] 080002-01-20 15:22:00 Test Item Value Reference Range Interpretation Comments Sed Rate (test code = Sed Rate) 6 [facility]IvnxnfgFRJTBSUJBF8028-21-94 15:22:00 Test Item Value Reference Range Interpretation Comments C-REACTIVE PROTEIN (test code = 2.2 C-REACTIVE PROTEIN) [facility] CampusZzqwmaxUNTGQCPGPZ3002-77-82 15:22:00 Test Item Value Reference Range Interpretation Comments Lymphocytes (test code = Lymphocytes) 24.2 [facility] CampusHfyjbqyMLNGDKRHMU8617-60-39 15:22:00 Test Item Value Reference Range Interpretation Comments Monocytes (test code = Monocytes) 6.5 [facility] CampusLotkcoyBOWMIIJJTJ8987-97-59 15:22:00 Test Item Value Reference Range Interpretation Comments Eosinophils (test code = Eosinophils) 0.7 [place] 080002-01-20 15:22:00 Test Item Value Reference Range Interpretation Comments Basophils (test code = Basophils) 0.7 [place] 080002-01-20 15:22:00 Test Item Value Reference Range Interpretation Comments Sed Rate (test code = Sed Rate) 6 [place] 468362-01-20 15:22:00 Test Item Value Reference Range Interpretation Comments C-REACTIVE PROTEIN (test code = 2.2 C-REACTIVE PROTEIN) [facility]2022-01-20 15:22:00 Test Item Value Reference Range Interpretation Comments Glucose Lvl (test code = Glucose Lvl) 108 65-99 [facility]2022-01-20 15:22:00 Test Item Value Reference Range Interpretation Comments BUN (test code = BUN) 13 7-25 [place] 517342-01-20 15:22:00 Test Item Value Reference Range Interpretation Comments Creatinine Lvl (test code = Creatinine 0.87 0.50-1.05 Lvl) [place] 517342-01-20 15:22:00 Test Item Value Reference Range Interpretation Comments eGFR NON-AFR. PERUVIAN (test code = 74 eGFR NON-AFR. PERUVIAN) [place] 517342-01-20 15:22:00 Test Item Value Reference Range Interpretation Comments eGFR (test code = eGFR 86 ) [place] 517342-01-20 15:22:00 Test Item Value Reference Range Interpretation Comments B/C Ratio (test code = B/C NOT APPLICABLE 03-14 Ratio) [place] 517342-01-20 15:22:00 Test Item Value Reference Range Interpretation Comments Sodium Lvl (test code = Sodium Lvl) 140 135-146 [place] 080002-01-20 15:22:00 Test Item Value Reference Range Interpretation Comments WBC X 10x3 (test code = WBC X 10x3) 9.2 3.8-10.8 [place] 517342-01-20 15:22:00 Test Item Value Reference Range Interpretation Comments Potassium Lvl (test code = Potassium 4.5 3.5-5.3 Lvl) [facility]2022-01-20 15:22:00 Test Item Value Reference Range Interpretation Comments Chloride Lvl (test code = Chloride Lvl) 107 98-110 [place] 517342-01-20 15:22:00 Test Item Value Reference Range Interpretation Comments CO2 (test code = CO2) 28 20-32 [place] 517342-01-20 15:22:00 Test Item Value Reference Range Interpretation Comments Calcium Lvl (test code = Calcium Lvl) 9.8 8.6-10.4 [place] 517342-01-20 15:22:00 Test Item Value Reference Range Interpretation Comments Total Protein (test code = Total 7.0 6.1-8.1 Protein) [place] 517342-01-20 15:22:00 Test Item Value Reference Range Interpretation Comments Albumin Lvl (test code = Albumin Lvl) 4.2 3.6-5.1 [place] 080002-01-20 15:22:00 Test Item Value Reference Range Interpretation Comments RBC X 10x6 (test code = RBC X 10x6) 4.69 3.80-5.10 [facility]villeCHEM EXQLE9735-71-39 15:22:00 Test Item Value Reference Range Interpretation Comments Globulin (test code = Globulin) 2.8 1.9-3.7 [facility]2022-01-20 15:22:00 Test Item Value Reference Range Interpretation Comments A/G Ratio (test code = A/G Ratio) 1.5 1.0-2.5 [facility]2022-01-20 15:22:00 Test Item Value Reference Range Interpretation Comments Bili Total (test code = Bili Total) 0.9 0.2-1.2 [facility]2022-01-20 15:22:00 Test Item Value Reference Range Interpretation Comments Alk Phos (test code = Alk Phos) 70 37-153 [facility] Notes Date/Time Note Provider Source 2023-04-03 09:05:00-00:00 [id number] [place] [address] PATIENT NAME: IRAIS ROSADO ADMIT DATE: 04/03/23 ACCOUNT NO: [id number] ROOM NO: AGE: 57 REPORT TYPE: OPERATIVE REPORT SEX: F ADMITTING PHYSICIAN: ATTENDING PHYSICIAN:Francisco Metz MD OPERATION DATE: 04/03/2023 PREOPERATIVE DIAGNOSIS: Right L5 radicul opathy with lumbar spondylitic change. POSTOPERATIVE DIAGNOSIS: Rig ht L5 radiculopathy with lumbar spondylitic change. PROCEDURE PERFORMED: Laminotomy with partial fac etectomy, foraminotomy, and neural decompression right L4-5 and L5-S1. SURGEON: Francisco Metz M.D. JUNIOR PROJECT COORDINATOR: Dee Espinal NP, COUNCILMAN. ANESTHESIA: General endotracheal. FINDINGS: Right L5 foraminal stenosis. INDICATIONS: Ms. Rosado is a 57-year -old patient with a chief complaint of radicular pain to the right leg. Her clinical presentation was that of right L5 radiculopathy. She has some spondylitic change a t L4-L5 and L5-S1. She also has a component of S1 radicular complaints. She has failed to respond completely to conservative measures and afterwards, she has elected to proceed with a posterior lumbar decompression laminotomy . She is aware of the risks, benefits, and alternatives t o this treatment and now comes in for this elective operation. PROCEDURE IN DETAIL: After the patient's identit y was verified and a preoperative intravenous antibiotic was administ ered, the patient was placed prone on the Grajeda frame. All bony prominences were padded and double-checked. The patient was fitted with thigh-high TERRY hoses and pneumatic foot pumps for thrombosis prophylaxis. After the customer development representative ior lumbar skin was prepped and draped in the usual sterile fashion , a standard posterior approach to the lumbar spine was performed. The right L4-5 and L5-S1 interspaces were approached. The facet joint capsules were spared. An intraoperative ra diograph confirmed the appropriate level of surgery. A laminotomy with partial fa cetectomy and foraminotomy was then performed on the right at L5-S1. The neural elements were identif ied and protected. All disc material, osteophytes, ligamentum flavum, and ot her structures causing compression of the neural elements were removed. Care was taken to leave adequate remaining pars inte rarticularis and facet joint surface so as to ensure ongoing spinal stability. We then turned our attention to the L4-5 level where PATIENT NAME: IRAIS ROSADO ACCLEMUEL T #: [id number] the exact same decompressive procedure was perfo rmed on the right. Adequate decompression of the neural elements was verified using a ball-ended probe. The wound was copiously irrigate d. Meticulous hemostasis was obtained and a standard layered wound closure was performed. Steri-Strip s and a sterile dressing were applied. The patient tolerated the procedure well. There were no intraoperative complications. Sponge and needle counts were cor rect x2. The patient was awakened and extubated and t aken to the recovery room in satisfactory condition. The skilled assistance of Dee Espinal NP, R NFA was necessary during this complex, spinal neural decom pression procedure. He assisted with every aspect of the operation including, but not limited to, proper and safe positioning of the patient, obtaining adequate surgical exposure, m anipulation of surgical instruments, the delicate task of providing suct ion to the surgical wound immediately adjacent to the spinal cord and neural elements, the delicate task of retraction of the thecal sac and neural eleme nts during the decompression portion of the operation, the continual process of hemostasis during the procedure itself in addition to surgical wound c losure and removal of the patient from the operating t able and returning the patient back to the [facility]. His assistance allowed me to perform the most sensitive and technical potions of this operation using 2 hands, thus en hancing patient safety. This would not be possible withou t the help of a skilled service assistant familiar with the procedure and capable of safely performing the a forementioned tasks. Our facility is not a teaching hospital, and as such , no surgical residents or interns were available to assist. COMPLICATIONS: None. SPECIMENS: Removed but not sent. Dictated By: Francisco Metz MD Date Dictated: 04/03/2023 09:05:00 Date Transcribed: 04/03/2023 09:34:58 AMIRA/VERO Receipt ID: [id number] Authenticated by Francisco Metz MD On 2022 05:07:55 PM Electronically Signed by Francisco Metz MD o n 04/08/23 at 0507 PATIENT NAME: IRAIS ROSADO ACCOUN T #: [id number] 2023-03-07 18:07:00-00:00 [id number] [place] [address] PATIENT NAME: IRAIS ROSADO ADMIT DATE: ACCOUNT NO: [id number] ROOM NO: AGE: 57 REPORT TYPE: ELECTROCARDIOGRAM SEX: F ADMITTING PHYSICIAN: ATTENDING PHYSICIAN:Francisco Metz MD Order: [id number] Test Reason : PRE OP CLEARANCE >50 Test Date/Time Stamp: SatMar 07 2023 18:07:14 Blood Pressure : / mmHG Vent. Rate : 060 BPM Atrial Rate : 060 BPM P-R Int : 126 ms QRS Dur : 076 ms QT Int : 400 ms P-R-T Axes : 057 052 031 degree s QTc Int : 400 ms Normal sinus rhythm Normal ECG No previous ECGs available Confirmed by JERSON LEPE MD ([id number]) on 03/08/2023 6:26:31 PM Referred By: Francisco Metz Confirmed by:JERSON LEPE MD PATIENT NAME: IRAIS ROSADO GONZALO T #: [id number]
[2023-04-28 19:39] LABS: Absolute Lymphocytes (CBC) 3.8 K/uL (0.7-4.9); Hematocrit 38.4 % (36.0-45.0); Lymphocytes % 32.8 % (15.3-44.8); MCV 92.5 fL (80-100); MPV 8.2 fL (7.6-11.3); Platelets 378 thou/uL (152-406); Protime INR 0.89; RBC Red Blood Cell Count 4.15 M/uL (3.86-4.86)
[2023-04-28 20:00] LABS: ALT/SGPT 26 U/L (13-56); AST/SGOT 16 U/L (15-37); Albumin 3.3 g/dL (3.4-5.0); Alkaline Phosphatase 65 U/L (45-117); BUN Blood Urea Nitrogen 19 mg/dL (7-18); Bicarbonate 27 mEq/L (21-32); Bilirubin Direct 0.1 mg/dL (0-0.2); Bilirubin Indirect, Calculated 0.5 mg/dL (0.2-0.8); Bilirubin Total 0.6 mg/dL (0.2-1.0); Glomerular Filtration Rate 52 ml/min (=/>90); Glucose Level 123 mg/dL (74-106); NT PRO-BNP 85 pg/mL (<125); Sodium Level 138 mEq/L (136-145); Thyroid Stimulating Hormone 0.059 uIU/mL (0.358-3.740)
[2023-04-28 20:01] LABS: C-Reactive Protein < 2.90 mg/L (<3.00)
--- NOTE | 2023-04-28 20:07 | RAD REPORT ---
EXAM DESCRIPTION: Wan Single View04/28/2023 7:48 pm CLINICAL HISTORY: Chest pain COMPARISON: 2020 FINDINGS: The lungs appear clear of acute infiltrate. The heart is normal size IMPRESSION: No acute abnormalities displayed
--- NOTE | 2023-04-28 20:48 | RAD REPORT ---
EXAM DESCRIPTION: USExtrem Venous W Compress Bil04/28/2023 8:34 pm CLINICAL HISTORY: Leg swelling COMPARISON: none FINDINGS: The common femoral, superficial femoral, greater saphenous, popliteal and posterior tibial veins bilaterally are compressible and demonstrate augmentation. Doppler demonstrates good flow. Grayscale, color and spectral analysis performed on all vessels IMPRESSION: No evidence of deep venous thrombosis involving either lower extremity.
--- NOTE | 2023-04-28 21:17 | ER ---
Nurse's Notes [facility] Name: Loren Rosado Age: 57 yrs Sex: Female : 1965 Arrival Date: 04/28/2023 Time: 18:55 Bed 13 Private MD: Diagnosis: Localized edema;Bilateral lower extremity edema , bilateral lower extremity fluid stagnation postoperatively, palpitations, dyspnea on exertion Presentation: 04/28 19:03 Chief complaint: Patient states: bilateral chest tightness with pain of 4,onset today pf1 with SOB, bilateral leg swelling with dizziness,onset Saturday. 19:03 Coronavirus screen: Vaccine status: Patient reports receiving the 1st dose of the Covid pf1 vaccine. Client denies travel out of the [place] in the last 14 days. At this time, the client does not indicate any symptoms associated with coronavirus-19. Ebola Screen: Patient negative for fever greater than or equal to 101.5 degrees Fahrenheit, and additional compatible Ebola Virus Disease symptoms. Initial Sepsis Screen: Does the patient meet any 2 criteria? No. Patient's initial sepsis screen is negative. Does the patient have a suspected source of infection?. Risk Assessment: Do you want to hurt yourself or someone else? Patient reports no desire to harm self or others. 19:03 Method Of Arrival: Ambulatory pf1 19:03 Acuity: AJ 2 pf1 19:05 Onset of symptoms was April 28, 2023. 1 Triage Assessment: 19:20 General: Appears comfortable, Behavior is calm, cooperative. Pain: Complains of pain in ha1 chest Pain does not radiate. Pain currently is 7 out of 10 on a pain scale. Quality of pain is described as pressure. Neuro: Level of Consciousness is awake, alert, obeys commands, Oriented to person, place, time, situation. Cardiovascular: Reports since chest pressure Heart tones S1 S2 present Patient's skin is warm and dry. Rhythm is sinus rhythm. 19:20 Musculoskeletal: Circulation, motion, and sensation intact. Range of motion: intact in ha1 all extremities. Historical: - Allergies: 19:38 No Known Allergies; pf1 - PMHx: 19:38 Hypothyroidism; pf1 - PSHx: 19:38 Migraine; nerve pain; chronic back pain; back surgery; Cholecystectomy; left knee pain; pf1 - Immunization history:: Adult Immunizations up to date, Client reports receiving the 1st dose of the Covid vaccine, Last tetanus immunization: < 10 years ago Flu vaccine is up to date. - Social history:: Smoking status: Patient reports the use of cigarette tobacco products, smokes one-half pack cigarettes per day, Patient uses alcohol, occasionally. Patient/guardian denies using street drugs. - Family history:: not pertinent. Screenin:03 [facility] ED Fall Risk Assessment (Adult) History of falling in the last 3 months, ha1 including since admission No falls in past 3 months (0 pts) Confusion or Disorientation No (0 pts) Intoxicated or Sedated No (0 pts) Impaired Gait No (0 pts) Mobility Assist Device Used No (0 pt) Altered Elimination No (0 pt) Score/Fall Risk Level 0 - 2 = Low Risk Oriented to surroundings, Maintained a safe environment, Educated pt \T\ family on fall prevention, incl call for assistance when getting out of bed. Abuse screen: Denies threats or abuse. Denies injuries from another. Nutritional screening: No deficits noted. Tuberculosis screening: No symptoms or risk factors identified. Assessment: 19:20 Reassessment: see triage assessment. ha1 Vital Signs: 19:03 BP 125 / 84; Pulse 80; Resp 17; Temp 98.9; Pulse Ox 99% on R/A; Weight 72.57 kg; Height pf1 5 ft. 2 in. ; Pain 4/10; 20:00 BP 107 / 67; Pulse 70; Resp 18 S; Pulse Ox 98% on R/A; ha1 21:00 BP 109 / 63; Pulse 69; Resp 17 S; Pulse Ox 97% on R/A; ha1 19:03 Body Mass Index 29.26 (72.57 kg, 157.48 cm) pf1 19:03 Pain Scale: Adult pf1 ED Course: 18:59 Patient arrived in ED. mg5 19:03 Ivan Reyna MD is Attending Physician. sp4 19:03 Patient maintains SpO2 saturation greater than 95% on room air. ha1 19:03 Patient has correct armband on for positive identification. Placed in gown. Bed in low ha1 position. Call light in reach. Side rails up X 1. 19:03 Client placed on continuous cardiac and pulse oximetry monitoring. NIBP monitoring ha1 applied. 19:03 Arm band placed on right wrist. ha1 19:15 Inserted saline lock: 22 gauge in right antecubital area, using aseptic technique. ha1 Blood collected. 19:24 Collette Bell, RN is Primary Nurse. ha1 19:24 Basic Metabolic Panel Sent. ha1 19:24 CBC with Diff Sent. ha1 19:27 LFT's Sent. ha1 19:27 Magnesium Sent. ha1 19:27 NT PRO-BNP Sent. ha1 19:27 PT-INR Sent. ha1 19:27 Troponin HS Sent. ha1 19:38 Triage completed. pf1 19:50 XRAY Chest (1 view) In Process Unspecified. EDMS 20:35 Extrem Venous W Compression Rehan US In Process Unspecified. EDMS 21:50 No provider procedures requiring assistance completed. ha1 21:50 IV discontinued, intact, bleeding controlled, No redness/swelling at site. Pressure ha1 dressing applied. 21:51 Provided Education on: follow ups. ha1 Administered Medications: No medications were administered Medication: 21:50 VIS not applicable for this client. ha1 Outcome: 21:17 Discharge ordered by . sp4 21:55 Condition: stable ha1 21:55 Discharged to home ambulatory, with family. ha1 21:55 Discharge instructions given to patient, family, Instructed on discharge instructions, follow up and referral plans. medication usage, Demonstrated understanding of instructions, follow-up care, medications. 21:56 Patient left the ED. ha1 Signatures: Dispatcher [employer] EDMS Collette Bell RN RN ha1 Andree Piedra RN RN pfIvan Meza MD MD sp4 Deloris Slaughter mg5
--- NOTE | 2023-04-28 21:17 | EDPHYS ---
Physician Documentation [facility] Name: Loren Rosado Age: 57 yrs Sex: Female : 1965 Arrival Date: 04/28/2023 Time: 18:55 Bed 13 Private MD: ED Physician Ivan Reyna HPI: 04/28 19:03 This 57 yrs old Female presents to ER via Unassigned with complaints of sp4 Dizziness, Chest Tightness, Shortness Of Breath, Swelling- Traveled from feet. 21:10 This very pleasant 57-year-old female presents with complaint of bilateral lower sp4 extremity and some dyspnea on exertion. This has occurred starting about 3 days ago starting on Saturday. On 04/03/2023 patient had lumbar disc surgery to alleviate the pressure on lumbar facets. Since then patient has not been exercising but has been doing regular chores at home. Patient currently takes Synthroid 125 mcg daily, takes multivitamins, smokes half a pack a day, takes estradiol tabs for estrogen replacement, propranolol extended release 60 mg daily, Lyrica 75 mg twice daily. Patient primary concern bilateral lower extremity DVT after surgery. . Historical: - Allergies: 19:38 No Known Allergies; pf1 - PMHx: 19:38 Hypothyroidism; pf1 - PSHx: 19:38 Migraine; nerve pain; chronic back pain; back surgery; Cholecystectomy; left knee pain; pf1 - Immunization history:: Adult Immunizations up to date, Client reports receiving the 1st dose of the Covid vaccine, Last tetanus immunization: < 10 years ago Flu vaccine is up to date. - Social history:: Smoking status: Patient reports the use of cigarette tobacco products, smokes one-half pack cigarettes per day, Patient uses alcohol, occasionally. Patient/guardian denies using street drugs. - Family history:: not pertinent. ROS: 21:10 Constitutional: Negative for fever, chills, and weight loss, Cardiovascular: Negative sp4 for chest pain, positive palpitations and bilateral lower extremity edema. Also some dyspnea on exertion in the last 3 days MS/Extremity: Negative for injury and deformity, positive bilateral lower extremity swelling starting 3 days ago 21:10 All other systems are negative. Exam: 21:10 Constitutional: This is a well developed, well nourished patient who is awake, alert, sp4 and in no acute distress. Head/Face: Normocephalic, atraumatic. Eyes: Pupils equal round and reactive to light, extra-ocular motions intact. Lids and lashes normal. Conjunctiva and sclera are not injected. Cornea within normal limits. Periorbital areas with no swelling, redness, or edema. ENT: Nares patent. No nasal discharge, no septal abnormalities noted. Tympanic membranes are normal and external auditory canals are clear. Oropharynx with no redness, swelling, or masses, exudates, or evidence of obstruction, uvula midline. Mucous membranes moist. Neck: Trachea midline, no thyromegaly or masses palpated, and no cervical lymphadenopathy. Supple, full range of motion without nuchal rigidity, or vertebral point tenderness. Chest/axilla: Normal chest wall appearance and motion. Nontender with no deformity. No lesions are appreciated. Cardiovascular: Regular rate and rhythm with a normal S1 and S2. No gallops, murmurs, or rubs. Normal PMI, no JVD. No pulse deficits. Respiratory: Lungs have equal breath sounds bilaterally, clear to auscultation and percussion. No rales, rhonchi or wheezes noted. No increased work of breathing, no retractions or nasal flaring. Abdomen/GI: Soft, non-tender, with normal bowel sounds. No distension or tympany. No guarding or rebound. No evidence of tenderness throughout. Back: No spinal tenderness. No costovertebral tenderness. Skin: Warm, dry with normal turgor. Normal color with no rashes, no lesions, and no evidence of cellulitis. MS/ Extremity: Pulses equal, no cyanosis. Neurovascular intact. Full, normal range of motion. Neuro: Awake and alert, GCS 15, oriented to person, place, time, and situation. Cranial nerves II-XII grossly intact. Motor strength 5/5 in all extremities. Sensory grossly intact. Psych: Awake, alert, with orientation to person, place and time. Behavior, mood, and affect are within normal limits 21:13 ECG was reviewed by the Attending Physician. EKG time 1907, there is normal sinus sp4 rhythm at rate of 83, no ST elevation or depression, no ectopy, overall normal EKG. Vital Signs: 19:03 BP 125 / 84; Pulse 80; Resp 17; Temp 98.9; Pulse Ox 99% on R/A; Weight 72.57 kg; Height pf1 5 ft. 2 in. ; Pain 4/10; 20:00 BP 107 / 67; Pulse 70; Resp 18 S; Pulse Ox 98% on R/A; ha1 21:00 BP 109 / 63; Pulse 69; Resp 17 S; Pulse Ox 97% on R/A; ha1 19:03 Body Mass Index 29.26 (72.57 kg, 157.48 cm) pf1 19:03 Pain Scale: Adult pf1 MDM: 19:05 Patient medically screened. sp4 21:13 Differential diagnosis: cardiac arrhythmia, generalized weakness, hyperventilation, sp4 hypovolemia, idiopathic dizziness, vertigo. Data reviewed: vital signs, nurses notes, lab test result(s), EKG, radiologic studies, plain films, ultrasound. Consideration of Admission/Observation Escalation of care including admission/observation considered. ED course: At this time there is no sign of heart failure, there is no sign of acute renal failure, there is mildly elevated creatinine of 1.2, however BNP is normal, chest x-ray is normal, no cardiac enlargement, EKG is unremarkable, with no arrhythmia. Bilateral lower extremity ultrasound reveals no sign of DVT. Patient at this time is stable for discharge home for follow-up with her primary MD. Patient has also reported goiter and she is scheduled for thyroid work-up with her primary MD. Including thyroid ultrasound. At this time there is no sign of emergent medical condition that warrants admission or further work-up. Free T4 is within normal limits.. 04/28 19:07 Order name: Basic Metabolic Panel; Complete Time: 21: sp4 04/28 19:07 Order name: CBC with Diff; Complete Time: 21: sp4 04/28 19:07 Order name: LFT's; Complete Time: 21:01 sp4 04/28 19:07 Order name: Magnesium; Complete Time: 21:01 sp4 04/28 19:07 Order name: NT PRO-BNP; Complete Time: 21:01 sp4 04/28 19:07 Order name: PT-INR; Complete Time: 21:01 sp4 04/28 19:07 Order name: Troponin HS; Complete Time: 21:01 sp4 04/28 19:07 Order name: T4 Free; Complete Time: 21:01 sp4 04/28 19:07 Order name: TSH; Complete Time: 21:01 sp4 04/28 19:49 Order name: C-Reactive Protein; Complete Time: 21:01 EDMS 04/28 19:07 Order name: XRAY Chest (1 view); Complete Time: 21:01 sp4 04/28 19:18 Order name: Extrem Venous W Compression Rehan US; Complete Time: 21:01 sp4 04/28 19:07 Order name: EKG; Complete Time: 19:08 sp4 04/28 19:07 Order name: Cardiac monitoring; Complete Time: 19:11 sp4 04/28 19:07 Order name: EKG - Nurse/Tech; Complete Time: 19:11 sp4 04/28 19:07 Order name: IV Saline Lock; Complete Time: 19:24 sp4 04/28 19:07 Order name: Labs collected and sent; Complete Time: 19:24 sp4 04/28 19:07 Order name: O2 Per Protocol; Complete Time: 19:11 sp4 04/28 19:07 Order name: O2 Sat Monitoring; Complete Time: 19:11 sp4 EC:13 Rate is 83 beats/min. Rhythm is regular, Normal Sinus Rhythm. QRS [place] is Normal. [place] sp4 interval is normal. QRS interval is normal. QT interval is normal. T waves are Normal. No ST changes noted. Clinical impression: Normal ECG. Interpreted by me. Administered Medications: No medications were administered Disposition Summary: 04/28/23 21:17 Discharge Ordered Location: Home sp4 Problem: new sp4 Symptoms: have improved sp4 Condition: Stable sp4 Diagnosis - Localized edema sp4 - Bilateral lower extremity edema , bilateral lower extremity fluid stagnation sp4 postoperatively, palpitations, dyspnea on exertion Followup: sp4 - With: Private Physician - When: 5 - 6 days - Reason: Recheck today's complaints Discharge Instructions: - Discharge Summary Sheet sp4 - Edema, [id number] sp4 Forms: - Patient Portal Instructions sp4 Signatures: Dispatcher [employer] Andree Oh RN RN [email or web address] Ivan Reyna MD MD sp4 Corrections: (The following items were deleted from the chart) 19:50 19:19 C-REACTIVE PROTEIN+C.LAB.BRZ ordered. EDMS EDMS
[2023-04-28 22:14] VITALS: TEMP 98.9
[2023-04-28 22:20] VITALS: BP 109/63; O2SAT 97
--- NOTE | 2023-04-29 13:01 | EKG ---
Test Date: 2023-04-28 Test Time: 19:08:11 Shipping Support: MARSHALL MEASUREMENT RESULTS: Intervals: Rate: 83 MN: 136 QRSD: 82 QT: 356 QTc: 418 [place]: P: 57 MN: 136 QRS: 28 T: 41 INTERPRETIVE STATEMENTS: Normal sinus rhythm ST abnormality, possible digitalis effect Abnormal ECG Compared to ECG 06/22/2022 12:20:28 Atrial abnormality no longer present ST (T wave) deviation still present Electronically Signed On 04-29-23 12:59:11 CDT by Juve Don
== END 2023-04-28 21:56 | disposition home or self-care (01) ==
LOC: ER 18:55
DX: R60.0 Localized edema (principal); R00.2 Palpitations; R06.00 Dyspnea, unspecified; L76.34 Postprocedural seroma of skin and subcutaneous tissue following other procedure; F17.210 Nicotine dependence, cigarettes, uncomplicated; E03.9 Hypothyroidism, unspecified
CPT/HCPCS: 36415; 71045; 80048; 80076; 83735; 83880; 84439; 84443; 84484; 85025; 85610; 86140; 93005; 93970; 99284

== ENCOUNTER → 2023-12-08 | Emergency (ER) | payer BC, OTHER ==
[~2023-12-08] MED LIST: HYDROCODONE/APAP 7.5/325 MG TAB ONE; TDAP (DIPHTH,PERTUSS(ACELL),TET VAC) 0.5 ML VIAL IMVAC ONE
--- NOTE | 2023-12-08 16:02 | RAD REPORT ---
EXAM DESCRIPTION: RAD - Elbow Right 3 View - 12/08/2023 3:34 pm CLINICAL HISTORY: laceration, fb eval;Pain COMPARISON: No comparisons TECHNIQUE: Right elbow, 3 views. FINDINGS: No fracture is identified. No elevated posterior fat pad to suggest an effusion. There is no dislocation or periosteal reaction noted. Epiphyses and growth plates are normal in appea doug. Soft tissue irregularity and defect along the dorsal aspect of the elbow. No radiopaque foreig n body. IMPRESSION: No acute osseous abnormality. No radiopaque foreign body. .
--- NOTE | 2023-12-08 16:03 | RAD REPORT ---
EXAM DESCRIPTION: RAD - Knee Right 3 View - 12/08/2023 3:34 pm CLINICAL HISTORY: PAIN COMPARISON: No comparisons TECHNIQUE: Right knee, 3 views. FINDINGS: No fracture, dislocation or periosteal reaction.No joint effusion seen. No joint space saeed rowing. No soft tissue abnormality. Clinical concerns for internal derangement or occult bony injury could be further assessed with MR im aging. IMPRESSION: Negative right knee.
--- NOTE | 2023-12-08 16:27 | ER ---
Nurse's Notes [facility] Name: Loren Rosado Age: 58 yrs Sex: Female : 1965 Arrival Date: 12/08/2023 Time: 13:49 Bed 7 Private MD: Diagnosis: Laceration without foreign body of right elbow, initial encounter Presentation: 12/07 14:36 Chief complaint: Right elbow and knee pain 6/10, and right elbow laceration after hb mechanical fall from standing onto asphalt yesterday. Coronavirus screen: At this time, the client does not indicate any symptoms associated with coronavirus-19. Ebola Screen: No symptoms or risks identified at this time. Initial Sepsis Screen: Does the patient meet any 2 criteria? No. Patient's initial sepsis screen is negative. Does the patient have a suspected source of infection? No. Patient's initial sepsis screen is negative. Risk Assessment: Do you want to hurt yourself or someone else? Patient reports no desire to harm self or others. Onset of symptoms was December 07, 2023. 14:36 Method Of Arrival: Ambulatory hb 14:36 Acuity: AJ 4 hb Triage Assessment: 14:40 General: Appears in no apparent distress. Behavior is calm, cooperative. Pain: Pain hb currently is 6 out of 10 on a pain scale. Neuro: Level of Consciousness is awake, alert, obeys commands, Oriented to person, place, time, situation. Cardiovascular: Patient's skin is warm and dry. Respiratory: Respiratory effort is even, unlabored, Respiratory pattern is regular, symmetrical. Injury Description: Laceration sustained to right elbow is full thickness, jagged, 2.6 to 7.5 cm long, not bleeding, was sustained 12-24 hours ago. a small amount of bleeding noted at this time. Historical: - Allergies: 14:40 No Known Allergies; hb - Home Meds: 14:40 estradiol 2 mg oral tablet daily [Active]; levothyroxine 112 mcg capsule daily hb [Active]; propranolol 60 mg Oral tablet nightly for migraine prevention [Active]; omeprazole 40 mg Oral capsule,delayed release (e.c.) [Active]; famotidine 40 mg Oral tablet daily [Active]; - PMHx: 14:40 Hypothyroidism; GERD (nerve pain); hb - PSHx: 14:40 back surgery; Cholecystectomy; chronic back pain; left knee pain; Migraine; nerve pain; hb - Immunization history:: Last tetanus immunization: < 10 years ago 2017. - Social history:: Smoking status: Patient reports the use of cigarette tobacco products, smokes one-half pack cigarettes per day. Screenin:30 [facility] ED Fall Risk Assessment (Adult) History of falling in the last 3 months, rs5 including since admission Yes- single mechanical fall (1 pt) Confusion or Disorientation No (0 pts) Intoxicated or Sedated No (0 pts) Impaired Gait No (0 pts) Mobility Assist Device Used No (0 pt) Altered Elimination No (0 pt) Score/Fall Risk Level 0 - 2 = Low Risk Oriented to surroundings, Maintained a safe environment. 14:30 Abuse screen: Denies threats or abuse. Nutritional screening: No deficits noted. rs5 Tuberculosis screening: No symptoms or risk factors identified. Assessment: 14:30 General: Appears in no apparent distress. comfortable, Behavior is calm, cooperative. rs5 Pain: Complains of pain in right elbow Pain currently is 7 out of 10 on a pain scale. Quality of pain is described as aching, Is continuous. Neuro: Level of Consciousness is awake, alert, obeys commands, Oriented to person, place, time, situation. Cardiovascular: Patient's skin is warm and dry. Rhythm is regular. Respiratory: Airway is patent Respiratory effort is even, unlabored, Respiratory pattern is regular, symmetrical. GI: Abdomen is round non-distended, Abd is soft and non tender X 4 quads. : No signs and/or symptoms were reported regarding the genitourinary system. EENT: No signs and/or symptoms were reported regarding the EENT system. Derm: Skin is pink, warm \T\ dry. one inch laceration noted to right elbow, no active bleeding noted. Musculoskeletal: Range of motion: limited in right elbow. 15:40 Reassessment: Patient and/or family updated on plan of care and expected duration. Pain rs5 level reassessed. Patient is alert, oriented x 3, equal unlabored respirations, skin warm/dry/pink. Patient denies pain at this time. Patient states feeling better. Patient states symptoms have improved. 16:55 Reassessment: No changes from previously documented assessment. rs5 Vital Signs: 14:36 BP 161 / 94; Pulse 86; Resp 16; Temp 98.3; Pulse Ox 100% on R/A; Weight 71.67 kg; hb Height 5 ft. 2 in. ; Pain 6/10; 16:30 BP 150 / 90; Pulse 80; Resp 18; Pulse Ox 99% on R/A; rs5 14:36 Body Mass Index 28.90 (71.67 kg, 157.48 cm) hb 14:36 Pain Scale: Adult hb ED Course: 13:56 Patient arrived in ED. im 13:56 Rocio Proctor PA-C is PHCP. sb4 13:56 Virginia White MD is Attending Physician. sb4 14:30 Kwan Reyes, RN is Primary Nurse. bp 14:30 Patient has correct armband on for positive identification. Placed in gown. Bed in low rs5 position. Call light in reach. Side rails up X2. 14:30 No provider procedures requiring assistance completed. rs5 14:40 Triage completed. hb 14:48 Arm band placed on. hb 15:36 Elbow Right 3 View XRAY In Process Unspecified. EDMS 15:36 Knee Right 3 View XRAY In Process Unspecified. EDMS 16:55 IV discontinued, intact, bleeding controlled, No redness/swelling at site. Pressure rs5 dressing applied. Administered Medications: 15:05 Drug: Boostrix Tdap IM 0.5 ml IM once; as a single dose Route: IM; Site: left deltoid; rs5 15:20 Follow up: Response: No adverse reaction rs5 15:05 Drug: Hydrocodone-Acetaminophen PO (7.5 mg-325 mg) 1 tabs PO once Route: PO; rs5 16:05 Follow up: Response: No adverse reaction; Pain is decreased rs5 Outcome: 16:27 Discharge ordered by . sb4 16:55 Discharged to home ambulatory, rs5 16:55 Condition: stable 16:55 Discharge instructions given to patient, family, Instructed on discharge instructions, follow up and referral plans. Demonstrated understanding of instructions, follow-up care, 16:58 Patient left the ED. rs5 Signatures: Dispatcher [employer] EDMS Nemo Bassett RN RN Kwan Reyes, RN KAREN bp Rocio Proctor PA-C PA-C sb4 Chriss Juan RN RN rs5 Sood, Federica im
--- NOTE | 2023-12-08 16:27 | EDPHYS ---
Physician Documentation [facility] Name: Loren Rosado Age: 58 yrs Sex: Female : 1965 Arrival Date: 12/08/2023 Time: 13:49 Bed 7 Private MD: ED Physician Virginia White HPI: 12/07 14:47 This 58 yrs old Female presents to ER via Ambulatory with complaints of Fall Injury. sb4 14:47 Patient states that her feet got caught on a barrier that she was trying to step over sb4 yesterday and she fell onto her right elbow and twisted her right knee on asphalt. She sustained road rash to her right knee and a laceration to her right elbow. She has been cleaning them at home. Her tetanus shot is not up-to-date. Historical: - Allergies: 14:40 No Known Allergies; hb - Home Meds: 14:40 estradiol 2 mg oral tablet daily [Active]; levothyroxine 112 mcg capsule daily hb [Active]; propranolol 60 mg Oral tablet nightly for migraine prevention [Active]; omeprazole 40 mg Oral capsule,delayed release (e.c.) [Active]; famotidine 40 mg Oral tablet daily [Active]; - PMHx: 14:40 Hypothyroidism; GERD (nerve pain); hb - PSHx: 14:40 back surgery; Cholecystectomy; chronic back pain; left knee pain; Migraine; nerve pain; hb - Immunization history:: Last tetanus immunization: < 10 years ago 2016. - Social history:: Smoking status: Patient reports the use of cigarette tobacco products, smokes one-half pack cigarettes per day. ROS: 14:47 Constitutional: Negative for fever, chills, and weight loss, sb4 14:47 MS/extremity: Positive for pain, of the right knee, 14:47 Skin: Positive for abrasion(s), laceration(s), of the right leg, 14:47 All other systems are negative, Exam: 14:47 Constitutional: This is a well developed, well nourished patient who is awake, alert, sb4 and in no acute distress. Head/Face: Normocephalic, atraumatic. Eyes: Extra-ocular motions intact. Periorbital areas with no swelling, redness, or edema. ENT: Mucous membranes moist. Cardiovascular: Regular rate and rhythm with a normal S1 and S2. Respiratory: Lungs have equal breath sounds bilaterally, clear to auscultation and percussion. No rales, rhonchi or wheezes noted. No increased work of breathing, no retractions or nasal flaring. Abdomen/GI: Soft, non-tender, no distension. MS/ Extremity: Pulses equal, no cyanosis. Neurovascular intact. Full, normal range of motion. Neuro: Awake and alert, GCS 15, oriented to person, place, time, and situation. Motor strength 5/5 in all extremities. Sensory grossly intact. 14:47 Skin: injury, laceration(s), the wound is approximately 3 cm(s), with a depth of .5 cm(s), of the right elbow, that can be described as irregular, without bleeding, road rash, that is mild, of the right knee, Vital Signs: 14:36 BP 161 / 94; Pulse 86; Resp 16; Temp 98.3; Pulse Ox 100% on R/A; Weight 71.67 kg; hb Height 5 ft. 2 in. ; Pain 6/10; 16:30 BP 150 / 90; Pulse 80; Resp 18; Pulse Ox 99% on R/A; rs5 14:36 Body Mass Index 28.90 (71.67 kg, 157.48 cm) hb 14:36 Pain Scale: Adult hb Laceration: 16:25 Wound Repair of 3cm ( 1.2in ) subcutaneous laceration to right elbow. Irregularly sb4 shaped.. Distal neuro/vascular/tendon intact. Anesthesia: Local anesthetic administered with 5 mls of 1% lidocaine. Wound prep: Moderate cleansing with betadine by me, Extensive cleansing, Wound irrigation with saline by me, Wound explored, Copious irrigation. Skin closed with 3 4-0 Prolene using simple sutures and sterile technique. Dressed with non-adherent dressing. Patient tolerated well. MDM: 14:20 Patient medically screened. sb4 16:25 Data reviewed: vital signs, nurses notes, radiologic studies, and as a result, I will sb4 discharge patient. Counseling: I had a detailed discussion with the patient and/or guardian regarding the historical points, exam findings, and any diagnostic results supporting the discharge/admit diagnosis, radiology results, the need for outpatient follow up, for suture removal in 10-14 days, to return to the emergency department if symptoms worsen or persist or if there are any questions or concerns that arise at home. 12/07 14:45 Order name: Elbow Right 3 View XRAY; Complete Time: 16:04 sb4 12/07 14:45 Order name: Knee Right 3 View XRAY; Complete Time: 16:04 sb4 12/07 14:45 Order name: Wound Care; Complete Time: 15:09 sb4 Administered Medications: 15:05 Drug: Boostrix Tdap IM 0.5 ml IM once; as a single dose Route: IM; Site: left deltoid; rs5 15:20 Follow up: Response: No adverse reaction rs5 15:05 Drug: Hydrocodone-Acetaminophen PO (7.5 mg-325 mg) 1 tabs PO once Route: PO; rs5 16:05 Follow up: Response: No adverse reaction; Pain is decreased rs5 Disposition: 19:03 Co-signature as Attending Physician, Virginia White MD I agree with the assessment and cp3 plan of care. Disposition Summary: 12/08/23 16:27 Discharge Ordered Notes: Location: Home sb4 Problem: new sb4 Symptoms: have improved sb4 Condition: Stable sb4 Diagnosis - Laceration without foreign body of right elbow, initial encounter sb4 Followup: sb4 - With: Private Physician - When: 10 - 14 days - Reason: Staple/Suture removal Discharge Instructions: - Discharge Summary Sheet sb4 - Laceration Care, Adult sb4 Forms: - Thank You Letter sb4 - Patient Portal Instructions sb4 - Leadership Thank You Letter sb4 Signatures: Dispatcher [employer] Virginia Mancilla MD MD cp3 Nemo Bassett, RN Rocio Goncalves, PAMohsen PAYuriyC sb4 Chriss Juan RN RN rs5
[2023-12-08 17:37] VITALS: BP 161/94; TEMP 98.3; O2SAT 100
== END ==
LOC: ER 13:49
PROC: 0HQDXZZ Repair Right Lower Arm Skin, External Approach (ICD-10-PCS; principal; 2023-12-08)
DX: S51.011A Laceration without foreign body of right elbow, initial encounter (principal); M25.561 Pain in right knee; W18.09XA Striking against other object with subsequent fall, initial encounter
CPT/HCPCS: 96372; 99284